=== PATIENT | female | born 1950 | race Caucasian/White ===

== ENCOUNTER → 2019-06-08 14:21 | Outpatient (CLI) | payer MEDICARE, SELFPAY ==
--- NOTE | 2019-06-08 14:33 | XR_ITS ---
PROCEDURE: XR HUMERUS LT CLINICAL INDICATION: LT ARM PAIN COMPARISON: No exams were available for comparison FINDINGS: No fracture or dislocation. No lytic or blastic change. Small area of exostosis is present at the lateral epicondyle could be related to old ligamentous injury. IMPRESSION: No acute finding. Small area of exostosis at the lateral epicondyle which could be related to old ligamentous injury or old avulsion fracture Dictated by: Ar Kate MD 06/08/2019 21:21 Signed by: <Electronically signed by Ar Kate MD in [facility]> 06/08/2019 21:21
== END ==
PROVIDERS: PCP Family Medicine; Visit Provider Family Medicine
DX: M79.602 Pain in left arm (principal)
CPT/HCPCS: 73060

== ENCOUNTER 2021-07-31 12:06 | Observation (INO) | payer MEDICARE, MEDICAID, SELFPAY ==
[2021-07-31] VITALS (12 sets, daily range): BP systolic 93–134; BP diastolic 53–66; PULSE 54–69; RESP 16–18; TEMP 36.4–37; O2SAT 97–100; BMI 25.5
--- NOTE | 2021-07-31 12:10 | PC.NURSE ---
pt has a large stage 3 ulcer on sacral area, there was some type of packing in place upon arrival. Packing was removed per ER MD. Telfa and tegaderm dressing placed over top of area.
--- NOTE | 2021-07-31 12:14 | XR_ITS ---
PROCEDURE: XR CHEST PORTABLE CLINICAL HISTORY: low bp COMPARISON: CT CT ABDOMEN PELVIS W CON from 07/31/2021 FINDINGS: There is mild cardiomegaly. Bowel interposition is noted on the right. No lobar consolidation or collapse. No acute bony abnormalities. IMPRESSION: No acute findings. Dictated by: Ar Kate MD 07/31/2021 14:25 Ar Kate MD in [facility] 07/31/2021 14:25
--- NOTE | 2021-07-31 12:16 | HMH.EDGENADL ---
ED Disposition Clinical Impression: Cellulitis Qualifiers: Site of cellulitis: face Qualified Code(s): L03.211 - Cellulitis of face Disposition: Admitted as Observation Condition on Discharge: Fair Referrals: Provider,Referral, [Primary Care Provider] - - Critical Care Critical Care Time: No Attestation: On , the high probability of a clinically significant, sudden or life threatening deterioration of the following system(s) required my full and direct attention, intervention and personal management. The time I documented below is in addition to time spent performing reported procedures but includes the following listed in this critical care notation. Medical Decision Making - Jewel Inquiry Pt receiving controlled substance: No Vital Signs: 07/31/21 12:07 07/31/21 14:23 Temperature 97.8 F Temperature Source Oral Pulse Rate 65 Pulse Rate [Left Radial] 68 Respiratory Rate 16 18 Blood Pressure 93/53 L Blood Pressure [Left Arm] 134/63 Blood Pressure Mean 67 Blood Pressure Mean [Left Arm] 86 Blood Pressure Source [Left Arm] Automatic Cuff Blood Pressure Position [Left Arm] Sitting 02 Sat by Pulse Oximetry 97 100 Oxygen Delivery Method Nasal Cannula Nasal Cannula Oxygen Flow Rate (LPM) 3 3 - Lab Data Lab Results 07/31/21 12:20: WBC 10.3, RBC 3.89 L, Hgb 11.2 L, Hct 34.3 L, MCV 88.1, MCH 28.8, MCHC 32.7, RDW 14.2, Plt Count 529 H, MPV 8.6, Neut % (Auto) 67.5, Lymph % (Auto) 25.9, [place] % (Auto) 4.7, Eos % (Auto) 1.1, Baso % (Auto) 0.9, Neut # (Auto) 6.9, Lymph # (Auto) 2.7, [place] # (Auto) 0.5, Eos # (Auto) 0.1, Baso # (Auto) 0.1 07/31/21 12:20: Sodium 137, Potassium 3.4 L, Chloride 104, Carbon Dioxide 33 H, Anion Gap 3.4 L, BUN 15, Creatinine 0.30 L, Estimated Creat Clear 62, Estimated GFR 221, Est GFR ( Amer) 267, Glucose 101 H, Calcium 7.7 L, Total Bilirubin 0.2, AST 24, ALT 15, Alkaline Phosphatase 251 H, C-Reactive Protein 72.4 H, Total Protein 5.6 L, Albumin 2.2 L, Globulin 3.4 H, Albumin/Globulin Ratio 0.6 L 07/31/21 12:20: ESR > 140 H 07/31/21 12:20: Lactate 0.7 07/31/21 12:20: Troponin I < 0.01, Procalcitonin 0.346 07/31/21 14:55: Troponin I < 0.01 Result diagrams: 07/31/21 12:20 07/31/21 12:20 Orders (Tests/Meds): ED MEDICATIONS Discontinued Medications Generic Name Dose Route Start Last Admin Trade Name Freq PRN Reason Stop Dose Admin Iopamidol 75 ml 07/31/21 14:03 07/31/21 14:04 Iopamidol-370 (76%);100ml Bottle IV 07/31/21 14:04 75 ml ONCE ONE Administration Sodium Chloride 10 ml 07/31/21 14:03 07/31/21 14:04 Sodium Chloride 0.9% 10ml Syr (Rad Only) IV 07/31/21 14:04 10 ml ONCE ONE Administration ORDERS Category Date Time Status Rapid PCR Covid and Flu A/B Stat Lab 07/31/21 16:40 Ordered Troponin I Q3H Lab 07/31/21 18:15 Ordered Urinalysis and Microscopic Stat Lab 07/31/21 12:15 Ordered Blood Culture Stat Micro 07/31/21 12:20 Received - Radiology Data #1 Image(s): Chest Image Reviewed: Yes I reviewed the patient's radiology image, Yes I have reviewed radiologist's interpretation PROCEDURE: XR CHEST PORTABLE CLINICAL HISTORY: low bp COMPARISON: CT CT ABDOMEN PELVIS W CON from 07/31/2021 FINDINGS: There is mild cardiomegaly. Bowel interposition is noted on the right. No lobar consolidation or collapse. No acute bony abnormalities. IMPRESSION: No acute findings. Dictated by: Ar Kate MD 07/31/2021 14:25 Ar Kate MD in [facility] 07/31/2021 14:25 - CT Data CT Scan: Abdomen, Pelvis, Other (Face, soft tissue neck) Time Received: 15:[address] Reviewed: Yes: I have viewed the radiologist's interpretation Findings Narrative: PROCEDURE: CT ABDOMEN PELVIS W CON CLINICAL INDICATION: dilated bowel on CXR COMPARISON: CR XR CHEST PORTABLE from 07/31/2021 TECHNIQUE: IV Contrast: 75ML Isovue 370 Oral Contrast None Axial images obtained with sagittal and coronal reformats. All CT sc
[2021-07-31 12:39] LABS: Basophils # 0.1 K/mm3 (0-0.2); Basophils % 0.9 % (0.1-2.0); Eosinophils # 0.1 K/mm3 (0.0-0.4); Eosinophils % 1.1 % (0.1-12.0); Hematocrit 34.3 % (37.0-47.0); Hemoglobin 11.2 g/dL (12.2-16.2); Lymphocytes # 2.7 K/mm3 (0.7-4.5); Lymphocytes % 25.9 % (10-50); Mean Corpuscular HGB Conc 32.7 g/dL (31.8-35.4); Mean Corpuscular Hemoglobin 28.8 pg (27.0-31.2); Mean Corpuscular Volume 88.1 fl (81-99); Mean Platelet Volume 8.6 fl (7.4-10.4); Monocytes # 0.5 K/mm3 (0.1-1.0); Monocytes % 4.7 % (1.7-9.3); Neutrophils # 6.9 K/mm3 (1.8-7.8); Neutrophils % 67.5 % (37.0-80.0); Platelet Count 529 K/mm3 (142-424); Red Blood Count 3.89 M/mm3 (4.20-5.40); Red Cell Distribution Width 14.2 % (11.5-17.5); White Blood Count 10.3 K/mm3 (4.8-10.8)
[2021-07-31 12:42] LABS: Alanine Aminotransferase 15 U/L (12-78); Albumin Level 2.2 g/dl (3.5-5.0); Albumin/Globulin Ratio 0.6 (1.1-1.8); Alkaline Phosphatase 251 U/L (38-126); Anion Gap 3.4 mEq/L (5-15); Aspartate Amino Transferase 24 U/L (14-36); Bilirubin,Total 0.2 mg/dl (0.2-1.3); Blood Urea Nitrogen 15 mg/dl (7-17); Calcium 7.7 mg/dl (8.4-10.2); Carbon Dioxide 33 mmol/L (22.0-30.0); Chloride 104 mmol/L (98-107); Estimated Glomerular Filt Rate 221 ml/min (>60); GFR (African American) 267 ML/MIN (>60); Globulin 3.4 g/dL (1.3-3.2); Glucose 101 mg/dl (74-100); Potassium 3.4 mmoL/L (3.5-5.1); Sodium 137 mmol/L (136-145); Total Protein,Serum 5.6 g/dl (6.3-8.2)
[2021-07-31 12:44] LABS: Lactic Acid 0.7 mmol/L (0.7-2.1)
[2021-07-31 12:45] LABS: Creatinine Clearance Estimated 62 mL/min (50-200)
[2021-07-31 12:47] LABS: C-Reactive Protein 72.4 mg/L (0-4)
[2021-07-31 12:58] LABS: Troponin I < 0.01 ng/ml (0.00-0.034)
[2021-07-31 13:01] LABS: Procalcitonin 0.346 ng/mL (0.0-2.0)
--- NOTE | 2021-07-31 13:06 | CT_ITS ---
PROCEDURE: CT FACIAL BONES W CON CLINICAL HISTORY: swelling, r/o abscess COMPARISON: No exams were available for comparison TECHNIQUE: Axial images obtained with sagittal and coronal reformats. All CT scans at the facility use one or more dose reduction, viz: automated exposure control, ma/kV adjustment per patient size (including targeted exams where dose is matched to indication, i.e. head), or iterative reconstruction technique. FINDINGS: Limited evaluation secondary to patient's inability to be properly position. There is diffuse subcutaneous soft tissue swelling beginning in the right parietal region of the scalp extending inferiorly in the temporal area and in the right cheek also with diffuse swelling of the external ear on the right. No obvious abscess is evident. No acute bony findings. No sinus air-fluid level. The soft tissue swelling also involves the right periorbital region. No obvious postseptal abnormalities. No radiopaque foreign bodies. IMPRESSION: Diffuse right-sided subcutaneous soft tissue swelling of the scalp extending into the right cheek and also involving the right external ear and periorbital area. No obvious drainable fluid collections. Dictated by: Ar Kate MD 07/31/2021 14:46 Ar Kate MD in [facility] 07/31/2021 14:46
--- NOTE | 2021-07-31 13:06 | CT_ITS ---
PROCEDURE: CT SOFT TISSUE NECK W CON CLINICAL HISTORY: swelling, r/o abscess COMPARISON: No exams were available for comparison TECHNIQUE: Oral Contrast: 75ml Optiray 350 IV Contrast: None Axial images obtained with sagittal and coronal reformats. All CT scans at the facility use one or more dose reduction, viz: automated exposure control, ma/kV adjustment per patient size (including targeted exams where dose is matched to indication, i.e. head), or iterative reconstruction technique. FINDINGS: Exam is extremely limited secondary to patient positioning with extensive right lateral head tilt Extensive soft tissue swelling extends from the right parietal region into the right temporal area as well as the right cheek and periorbital region. No obvious abscess or mass. No bony destructive process. There is scarring in the right lung apex. There is prominent cervical curvature convex left with the head tilted toward the right. IMPRESSION: Extensive soft tissue swelling in the right and face without obvious abscess consistent with cellulitis Dictated by: Ar Kate MD 07/31/2021 14:53 Ar Kate MD in [place] 07/31/2021 14:53
[2021-07-31 13:11] LABS: Erythrocyte Sedimentation Rate > 140 mm/hr (0-30)
--- NOTE | 2021-07-31 13:47 | CT_ITS ---
PROCEDURE: CT ABDOMEN PELVIS W CON CLINICAL INDICATION: dilated bowel on CXR COMPARISON: CR XR CHEST PORTABLE from 07/31/2021 TECHNIQUE: IV Contrast: 75ML Isovue 370 Oral Contrast None Axial images obtained with sagittal and coronal reformats. All CT scans at the facility use one or more dose reduction, viz: automated exposure control, ma/kV adjustment per patient size (including targeted exams where dose is matched to indication, i.e. head), or iterative reconstruction technique. FINDINGS: There is extensive coronary artery calcification with atelectatic changes in the lung bases and cardiomegaly. No focal liver lesion evident. The spleen, adrenal glands, and pancreas have an unremarkable appearance. No renal mass or hydronephrosis. Stomach is decompressed. Calcific density is present within the stomach at approximately 12 mm etiology indeterminate there is a moderate amount of feces in the rectosigmoid region with mild distention of the stool-filled rectosigmoid at 5.4 cm. The sigmoid colon is redundant extending into the upper abdomen with gaseous distension measuring up to 8.5 cm.. The descending colon is normal in caliber. There is gaseous distention of the transverse colon at 6 cm. No evidence of diverticulitis. No evidence of appendicitis. There is some fecal a appearing material within the distal ileum suggesting stasis. Stool is present within the ascending colon. The cecum does not appear distended. There is no free air apparent. There is diffuse subcutaneous edema. Aburto catheter is present with decompressed urinary bladder. There is stranding of the perirectal fat and presacral fat which is nonspecific. No evidence of aortic aneurysm. Bipolar prosthesis is present in the right hip. There is diffuse osteopenia. Mild concave deformity is present at the superior and inferior endplate of L4 and L3 nonspecific. There is mild wedging of T8 age indeterminate. IMPRESSION: Gaseous and stool filled large bowel some of which is dilated expected Ali at the sigmoid region and transverse colon with a moderate amount stool within the rectosigmoid region. 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 This does not appear to represent a sigmoid volvulus. There is moderate stranding of the fat in the perirectal region and presacral area. This is nonspecific and could be inflammatory in nature or secondary to hypovolemia. There is diffuse stranding of the subcutaneous fat in the abdomen and pelvis consistent with anasarca. Dictated by: Ar Kate MD 07/31/2021 15:05 Ar Kate MD in [place] 07/31/2021 15:05
--- NOTE | 2021-07-31 14:24 | PC.NURSE ---
pt turned onto R side at this time, pillow under R side of head, heels floated with pillow will continue to monitor
--- NOTE | 2021-07-31 14:32 | ECG_ITS ---
APPROVED REPORT Exam: Resting ECG HR:61 bpm ECG Measurements Heart Rate [address] 234 P 11 QRSd 96 QRS 7 QT 438 T 55 QTc 440 Conclusion Sinus rhythm with 1st degree AV block Inferior infarct, age undetermined Abnormal ECG Electronically signed by : Mickey Armendariz MD 08/01/2021 17:49:08
[2021-07-31 15:22] LABS: Troponin I < 0.01 ng/ml (0.00-0.034)
--- NOTE | 2021-07-31 16:37 | PC.NURSE ---
Dr Casey speaking with Dr Armendariz
--- NOTE | 2021-07-31 16:45 | PC.NURSE ---
Covid swab sent to lab
[2021-07-31 16:50] LABS: Coronavirus 19, PCR Not Detected (NotDetected); Influenza A, PCR Not Detected (NotDetected); Influenza B, PCR Not Detected (NotDetected)
--- NOTE | 2021-07-31 17:29 | PC.NURSE ---
pt turned onto L side at this time, pt states no needs at this time.
--- NOTE | 2021-07-31 18:23 | PC.NURSE ---
report called to vinayak lópez on second floor at this time
[2021-07-31 18:41] LABS: Microscopic, Urine URINE MICROSCOPIC (MICROSCOPIC)
[2021-07-31 18:55] LABS: Appearance,Urine SL CLOUDY (Clear); Bilirubin,Urine Negative (Negative); Blood, Urine TRACE-I (Negative); Color,Urine YELLOW (Yellow); Glucose,Urine (UA) Negative (Negative); Ketones,Urine Negative (Negative); Leukocyte Esterase,Urine 2+ (Negative); Nitrate,Urine POSITIVE (Negative); Protein,Urine Negative (Negative); Specific Gravity, Urine <= 1.005 (1.005-1.030)
[2021-07-31 19:06] LABS: Bacteria,Urine 1+ /lpf; RBC,Urine Occasional #/hpf (0-3); Squamous Epithelial Cell,Urine Occasional #/hpf (0-5)
[2021-08-01] VITALS: BP 137/55; PULSE 60; RESP 16; TEMP 36.4; O2SAT 96
[2021-08-01 02:51] VITALS: O2SAT 98
[2021-08-01 04:00] VITALS: BP 124/70; PULSE 65; RESP 16; TEMP 36.4; O2SAT 95
--- NOTE | 2021-08-01 06:51 | PC.NURSE ---
No acute changes. Pt is alert to self and responds to staff. She is currently on 3L NC. Is on this at [facility] faacility. Pt is severly contracted in hands and to (R) side. Skin to BLE is scaly with drainage. Decubitus ulcer noted to cocccyx Stage 2. DSG applied. Pt given bed bath. VSS. Will continue to monitor.
--- NOTE | 2021-08-01 07:49 | HMH.PHAVTE ---
[facility] Pharmacy VTE Monitoring - Patient Demographics Admission date: 07/31/21 Report Date: 08/01/21 Time: 07:49 Allergies/Adverse Reactions: Patient Allergies No Known Allergies Allergy (Unverified 09/03/19 15:18) Height: 1.7 m Weight: 73.936 kg Patient Problems: Current Active Problems Cellulitis (Acute) - VTE Risk Labs: VTE Related Lab Results Hgb 11.2 g/dL (12.2-16.2) L 07/31/21 12:20 Hct 34.3 % (37.0-47.0) L 07/31/21 12:20 Plt Count 529 K/mm3 (142-424) H 07/31/21 12:20 BUN 15 mg/dl (7-17) 07/31/21 12:20 Creatinine 0.30 mg/dl (0.52-1.04) L 07/31/21 12:20 Estimated Creat Clear 62 mL/min (50-200) 07/31/21 12:20 VTE Risk Level: Moderate Risk Clinical Trial Participant: No - Prophylaxis VTE Prophylaxis Ordered?: Yes Types of VTE Prophylaxis: TEDS Knee High
--- NOTE | 2021-08-01 07:50 | HMH.PHACONS ---
- Pharmacy Consult Date: 08/01/21 Time: 07:50 Referring provider: SIDDHARTHA Reason for Consult:: MANAGEMENT OF VANCOMYCIN THERAPY Allergies and ADEs:: Allergies Allergy/AdvReac Type Severity Reaction Status Date / Time No Known Allergies Allergy Unverified 09/03/19 15:18 Home Medications:: Home Medications Medication Instructions Recorded Confirmed Type aspirin 81 mg tablet,delayed 81 mg PO DAILY 09/03/19 08/01/21 History release atorvastatin 10 mg tablet 10 mg PO DAILY 09/03/19 08/01/21 History carvedilol 3.125 mg tablet 3.125 mg PO BID 09/03/19 08/01/21 History cefuroxime axetil 500 mg tablet 500 mg PO BID 09/03/19 07/31/21 History diazepam 5 mg tablet 2.5 mg PO QID tab 09/03/19 08/01/21 History furosemide 20 mg tablet 20 mg PO DAILY 09/03/19 08/01/21 History levothyroxine 175 mcg capsule 200 mcg PO DAILY 09/03/19 08/01/21 History pantoprazole 40 mg granules 20 mg PO DAILY 09/03/19 07/31/21 History delayed-release for susp in packet sennosides 8.8 mg/5 mL oral syrup 5 ml PO QHS 09/03/19 07/31/21 History Mirtazapine 7.5 mg PO HS 07/31/21 08/01/21 History Potassium Chloride 20 meq PO DAILY 07/31/21 08/01/21 History Acetaminophen [Tylenol 500mg 500 mg PO Q8 PRN 08/01/21 08/01/21 History tablet] Ascorbic Acid 500 mg PO DAILY 08/01/21 08/01/21 History Lactobacillus Acidophilus 1 each PO DAILY 08/01/21 08/01/21 History [Probiotic] Oxybutynin Chloride [Ditropan Xl] 5 mg PO DAILY 08/01/21 08/01/21 History Height: 1.7 m Weight: 73.936 kg Laboratory Results:: Laboratory Results - last 24 hr 07/31/21 12:20: WBC 10.3, RBC 3.89 L, Hgb 11.2 L, Hct 34.3 L, MCV 88.1, MCH 28.8, MCHC 32.7, RDW 14.2, Plt Count 529 H, MPV 8.6, Neut % (Auto) 67.5, Lymph % (Auto) 25.9, [place] % (Auto) 4.7, Eos % (Auto) 1.1, Baso % (Auto) 0.9, Neut # (Auto) 6.9, Lymph # (Auto) 2.7, [place] # (Auto) 0.5, Eos # (Auto) 0.1, Baso # (Auto) 0.1 07/31/21 12:20: Sodium 137, Potassium 3.4 L, Chloride 104, Carbon Dioxide 33 H, Anion Gap 3.4 L, BUN 15, Creatinine 0.30 L, Estimated Creat Clear 62, Estimated GFR 221, Est GFR ( Amer) 267, Glucose 101 H, Calcium 7.7 L, Total Bilirubin 0.2, AST 24, ALT 15, Alkaline Phosphatase 251 H, C-Reactive Protein 72.4 H, Total Protein 5.6 L, Albumin 2.2 L, Globulin 3.4 H, Albumin/Globulin Ratio 0.6 L 07/31/21 12:20: ESR > 140 H 07/31/21 12:20: Lactate 0.7 07/31/21 12:20: Troponin I < 0.01, Procalcitonin 0.346 07/31/21 14:55: Troponin I < 0.01 07/31/21 16:43: SARS-CoV-2 (PCR) Not detected, Influenza A Untype (PCR) Not detected, Influenza Type B (PCR) Not detected 07/31/21 18:38: Urine Color Yellow, Urine Appearance Sl cloudy, Urine pH 6.0, Ur Specific [place] <= 1.005, Urine Protein Negative, Urine Glucose (UA) Negative, Urine Ketones Negative, Urine Blood Trace-i, Urine Nitrate Positive, Urine Bilirubin Negative, Urine Urobilinogen 1.0, Ur Leukocyte Esterase 2+ A, Urine RBC Occasional, Urine WBC 3-5, Ur Squamous Epith Cells Occasional, Urine Bacteria 1+ Medical History: Reports:: Anxiety, Congestive Heart Failure, Hyperlipidemia, Hypertension, Urinary Tract Infection Assessment and Plan - Assessment and plan all Dx Assessment and Plan for all problems:: Pt admitted with facial cellulitis. Received vancomycin 1000mg (~14mg/kg) in ER. Will continue vancomycin 1000mg IV every 12 hours starting this am. Pharmacy will follow daily and adjust as necessary.
[2021-08-01 08:00] VITALS: BP 131/34; PULSE 70; RESP 16; TEMP 36.3; O2SAT 95
--- NOTE | 2021-08-01 08:12 | HMH.PHAINT ---
MEDICATION RECONCILIATION COMPLETE USING SHELTER MAR AND SURESCRIPTS INFO
--- NOTE | 2021-08-01 08:15 | HMH.HPDC ---
General - General Admission date:: 07/31/21 Discharge date: 08/01/21 *Admission Date: 07/31/21 *Chief complaint: Facial swelling and low-grade fever *History of present illness: Presented to the emergency department by ambulance from [facility] with chief complaint of facial swelling and low blood pressure. Apparently has been on cefuroxime for a urinary tract infection but this swelling was noticed over the past couple of days in the right side of the face. She was also noted to have a mildly low blood pressure and was brought to the emergency department. In the ER her significant torticollis and face and neck contracture limited a good exam but was noted to have swelling without evidence of abscess formation. CT scan confirmed the diagnosis of right facial cellulitis involving the scalp, right maxillary area and surrounding the ear but did not show any kind of abscess or fluid collections or evidence of subcutaneous emphysema. She was admitted to hospital for IV steroids and antibiotics. White count was normal. [facility] History I have reviewed the patient's past medical history: Yes Medical History: Reports:: Anxiety, Congestive Heart Failure, Hyperlipidemia, Hypertension, Urinary Tract Infection *Have you ever received a pneumonia vaccine?: No *Have you received a flu vaccine this season?: No Other Medical History: Reports: Hypothyroidism, Thyroid Disease, Other (parkinson,mi,) Laterality Cases: Right: Total Hip Replacement Fractures: Yes - *Social History Smoking Status: Never smoker Alcohol Intake: never *Occupational Status:: retired Housing: house Household Members: family *Travel in the last 8 weeks: None - Psychiatric History Pschychiatric History:: Reports:: Anxiety Family Hx:: Unable to obtain Review of Systems - Review of Systems Review of systems:: unable to obtain Exam Vital signs and Labs for Last 24 Hours: Temp Pulse Resp BP Pulse Ox 97.5 F L 65 16 124/70 95 08/01/21 04:00 08/01/21 04:00 08/01/21 04:00 08/01/21 04:00 08/01/21 04:00 Laboratory Results - last 24 hr 07/31/21 12:20: WBC 10.3, RBC 3.89 L, Hgb 11.2 L, Hct 34.3 L, MCV 88.1, MCH 28.8, MCHC 32.7, RDW 14.2, Plt Count 529 H, MPV 8.6, Neut % (Auto) 67.5, Lymph % (Auto) 25.9, Sac % (Auto) 4.7, Eos % (Auto) 1.1, Baso % (Auto) 0.9, Neut # (Auto) 6.9, Lymph # (Auto) 2.7, Sac # (Auto) 0.5, Eos # (Auto) 0.1, Baso # (Auto) 0.1 07/31/21 12:20: Sodium 137, Potassium 3.4 L, Chloride 104, Carbon Dioxide 33 H, Anion Gap 3.4 L, BUN 15, Creatinine 0.30 L, Estimated Creat Clear 62, Estimated GFR 221, Est GFR ( Amer) 267, Glucose 101 H, Calcium 7.7 L, Total Bilirubin 0.2, AST 24, ALT 15, Alkaline Phosphatase 251 H, C-Reactive Protein 72.4 H, Total Protein 5.6 L, Albumin 2.2 L, Globulin 3.4 H, Albumin/Globulin Ratio 0.6 L 07/31/21 12:20: ESR > 140 H 07/31/21 12:20: Lactate 0.7 07/31/21 12:20: Troponin I < 0.01, Procalcitonin 0.346 07/31/21 14:55: Troponin I < 0.01 07/31/21 16:43: SARS-CoV-2 (PCR) Not detected, Influenza A Untype (PCR) Not detected, Influenza Type B (PCR) Not detected 07/31/21 18:38: Urine Color Yellow, Urine Appearance Sl cloudy, Urine pH 6.0, Ur Specific [place] <= 1.005, Urine Protein Negative, Urine Glucose (UA) Negative, Urine Ketones Negative, Urine Blood Trace-i, Urine Nitrate Positive, Urine Bilirubin Negative, Urine Urobilinogen 1.0, Ur Leukocyte Esterase 2+ A, Urine RBC Occasional, Urine WBC 3-5, Ur Squamous Epith Cells Occasional, Urine Bacteria 1+ I & O for Last 24 hours: Intake & Output 07/29/21 07/30/21 07/31/21 08/01/21 11:59 11:59 11:59 11:59 Intake Total 789 / 789 Output Total 1175 / 1175 Balance -386 / -386 Weight 163 lb - Constitutional no acute distress, thin, cachectic, chronically ill appearing Comments: Contracture of right neck, contractures of distal skeletal muscles. - *Routine HEENT Exam Head: Present: other (Right-sided maxillary and ear and cheek swelli
--- NOTE | 2021-08-01 09:14 | SW/DCPLANNER ---
Addendum entered by Angela Vega 08/01/21 09:23: CORRECTION: patient is [facility] level of care per Enedelia. Original Note: This patient reside at [facility]: per Enedelia patient is SNF level of care. I have informed Enedelia that this patient will discharge back today. Enedelia has stated that this patient does NOT need an additional COVID swab. Patient will discharge back today.
== END 2021-08-01 15:14 ==
LOC: ER 16:43 → 2ND 17:10
PROVIDERS: Admitting Provider Internal Medicine Adolescent Medicine; Emergency Provider Emergency Medicine; Visit Provider Internal Medicine Adolescent Medicine
DX: L03.211 Cellulitis of face (principal); I11.0 Hypertensive heart disease with heart failure; I50.9 Heart failure, unspecified; E78.5 Hyperlipidemia, unspecified; E03.9 Hypothyroidism, unspecified; G20 Parkinson's disease; Z79.899 Other long term (current) drug therapy; Z20.822 Contact with and (suspected) exposure to COVID-19
CPT/HCPCS: G0378; 36415; 70487; 70491; 71045; 74177; 80053; 81001; 83605; 84145; 84484; 85025; 85651; 86140; 87040; 87086; 87088; 87186; 93005; 94760; 94761; 96365; 99285; C9803; J3370; Q9967; U0003; U0005

== ENCOUNTER 2022-08-06 15:46 | Inpatient (IN) | payer MEDICARE, MEDICAID, SELFPAY ==
[2022-08-06] VITALS (17 sets, daily range): BP systolic 67–109; BP diastolic 33–57; PULSE 79–93; RESP 14–20; TEMP 36.7–37; O2SAT 94–98; BMI 23.6; BMI 23.7
--- NOTE | 2022-08-06 15:45 | HMH.EDGENADL ---
Discharge Plan Disposition Patient Disposition: Admitted As Inpatient Condition: Fair Clinical Impressions Clinical Impression: Cellulitis, Acute hypokalemia Discharge ED Provider: Sam Antoine General Adult HPI General Chief complaint: Skin/Abscess/Foreign Body Stated complaint: weakness Time Seen by Provider: 08/06/22 15:45 Mode of Arrival: EMS History of Present Illness HPI narrative: 72-year-old female with history of hypertension, hypothyroidism, coronary artery disease, Parkinson's disease, currently bedbound with significant contractures. She was in a nursing facility and was sent over for swelling and erythema of the left abdomen and flank area. There is no reported fevers, vomiting, she states there is no real pain in the area, does report some mild nausea and decreased appetite. Denies any abdominal pain, chest pain shortness of breath or other symptoms at this time, they have not had her on any treatments prior to this visit. Related Data Home Medications Medication Instructions Recorded Confirmed aspirin 81 mg tablet,delayed 81 mg PO DAILY heart health 09/03/19 08/06/22 release (Adult Low Dose Aspirin) atorvastatin 10 mg tablet 10 mg PO HS Cholesterol 09/03/19 08/06/22 diazepam 5 mg tablet (Valium) 2.5 mg PO BID TREMORS 09/03/19 08/06/22 sennosides 8.8 mg/5 mL oral syrup 5 ml PO QHS stool softner 09/03/19 08/06/22 (senna) potassium chloride 10 mEq 20 meq PO DAILY Supplement 07/31/21 08/06/22 tablet,extended release ascorbic acid (vitamin C) 500 mg 500 mg PO DAILY wound 08/01/21 08/06/22 tablet levothyroxine 200 mcg tablet 200 mcg PO DAILY HYPOTHYROIDISM 08/01/21 08/06/22 oxybutynin chloride 5 mg 5 mg PO DAILY urinary retention 08/01/21 08/06/22 tablet,extended release 24 hr pantoprazole 20 mg tablet,delayed 20 mg PO DAILY GERD 08/01/21 08/06/22 release Lactobacillus acidophilus 1 cap PO DAILY Supplement 08/06/22 08/06/22 (Acidophilus capsule) carvedilol 3.125 mg tablet 3.125 mg PO BID Hypertension 08/06/22 08/06/22 furosemide 40 mg tablet 40 mg PO DAILY Fluid 08/06/22 08/06/22 ibuprofen 125 mg-acetaminophen 250 1 tab PO HS Pain 08/06/22 08/06/22 mg tablet (Advil Dual Action) levothyroxine 50 mcg tablet 50 mcg PO DAILY hypothyroidism 08/06/22 08/06/22 (Synthroid) mirtazapine 15 mg tablet (Remeron) 7.5 mg PO HS appetite stimulant 08/06/22 08/06/22 sennosides 8.6 mg tablet (senna) 8.6 mg PO HS loose stool 08/06/22 08/06/22 Allergies Allergy/AdvReac Type Severity Reaction Status Date / Time Penicillins Allergy Verified 08/06/22 18:37 Sulfa (Sulfonamide Allergy Verified 08/06/22 18:37 Antibiotics) sulfamethoxazole Allergy Verified 08/06/22 18:37 [From ] trimethoprim [From ] Allergy Verified 08/06/22 18:37 [facility] Medical History Hip fracture requiring operative repair Hypertension Hypothyroid Non-ST elevated myocardial infarction Parkinson disease Unsteady gait UTI (urinary tract infection) Social History Smoking Status: Never smoker alcohol intake: never current occupational status: retired Travel in the last 8 weeks: None household members: family housing: house ROS Obtained: Yes Systems reviewed as appropriate & no additional complaints except as documented Constitutional Constitutional: Reports system reviewed and no additional complaints, except as documented Eyes Eyes: Reports system reviewed and no additional complaints, except as documented ENT Ears, Nose, Mouth, and Throat: Reports system reviewed and no additional complaints, except as documented Cardiovascular Cardiovascular: Reports system reviewed and no additional complaints, except as documented Respiratory Respiratory: Reports system reviewed and no additional complaints, except as documented Gastrointestinal Gastrointestingal: Reports system reviewed and
[2022-08-06 16:54] LABS: Basophils # 0.1 K/mm3 (0-0.2); Basophils % 0.4 % (0.1-2.0); Eosinophils # 0.4 K/mm3 (0.0-0.4); Hematocrit 36.8 % (37.0-47.0); Hemoglobin 12.3 g/dL (12.2-16.2); Lymphocytes # 1.4 K/mm3 (0.7-4.5); Lymphocytes % 4.2 % (10-50); Mean Corpuscular HGB Conc 33.4 g/dL (31.8-35.4); Mean Corpuscular Hemoglobin 29.4 pg (27.0-31.2); Mean Platelet Volume 8.3 fl (7.4-10.4); Monocytes # 0.5 K/mm3 (0.1-1.0); Monocytes % 1.5 % (1.7-9.3); Neutrophils # 30.6 K/mm3 (1.8-7.8); Neutrophils % 92.8 % (37.0-80.0); Platelet Count 262 K/mm3 (142-424); Red Blood Count 4.18 M/mm3 (4.20-5.40); Red Cell Distribution Width 14.4 % (11.5-17.5); White Blood Count 32.9 K/mm3 (4.8-10.8)
[2022-08-06 16:57] LABS: MANUAL DIFFERENTIAL MANUAL DIFFERENTIAL (MANUAL DIFF)
[2022-08-06 17:00] LABS: Alanine Aminotransferase 94 U/L (12-78); Albumin Level 2.7 g/dl (3.5-5.0); Albumin/Globulin Ratio 0.9 (1.1-1.8); Alkaline Phosphatase 224 U/L (38-126); Anion Gap 8.1 mEq/L (5-15); Aspartate Amino Transferase 138 U/L (14-36); Bilirubin,Total 0.4 mg/dl (0.2-1.3); Blood Urea Nitrogen 23 mg/dl (7-17); Calcium 7.9 mg/dl (8.4-10.2); Carbon Dioxide 31 mmol/L (22.0-30.0); Chloride 98 mmol/L (98-107); Creatinine Clearance Estimated 57 mL/min (50-200); Estimated Glomerular Filt Rate 158 ml/min (>60); GFR (African American) 191 ML/MIN (>60); Globulin 3.1 g/dL (1.3-3.2); Glucose 129 mg/dl (74-100); Potassium 3.1 mmoL/L (3.5-5.1); Sodium 134 mmol/L (136-145); Total Protein,Serum 5.8 g/dl (6.3-8.2)
[2022-08-06 17:01] LABS: Microscopic, Urine URINE MICROSCOPIC (MICROSCOPIC)
[2022-08-06 17:02] LABS: Appearance,Urine CLOUDY (Clear); Bilirubin,Urine Negative (Negative); Blood, Urine Negative (Negative); Color,Urine YELLOW (Yellow); Glucose,Urine (UA) Negative (Negative); Ketones,Urine Negative (Negative); Leukocyte Esterase,Urine 3+ (Negative); Nitrate,Urine Negative (Negative); PH,Urine 8.5 (5.0-8.5); Protein,Urine TRACE (Negative); Specific Gravity, Urine <= 1.005 (1.005-1.030); Urobilinogen,Urine 0.2 EU/dl (0.2)
--- NOTE | 2022-08-06 17:03 | CT_ITS ---
PROCEDURE INFORMATION: Exam: CT Chest Without Contrast; Diagnostic Exam date and time: 08/06/2022 5:09 PM Age: 72 years old Clinical indication: Other: Cellulitis; Additional info: Chest and abdominal wall cellulitis TECHNIQUE: Imaging protocol: Diagnostic computed tomography of the chest without contrast. Radiation optimization: All CT scans at this facility use at least one of these dose optimization techniques: automated exposure control; mA and/or kV adjustment per patient size (includes targeted exams where dose is matched to clinical indication); or iterative reconstruction. COMPARISON: CR XR CHEST PORTABLE 07/31/2021 12:32 PM FINDINGS: Lungs: There is chronic patchy subsegmental atelectasis or scarring in the posterior lower lungs. There is a slightly mosaic attenuation pattern in the lungs, which can be due to underlying small airways disease, versus mild patchy ground-glass edema or pneumonia. No focal consolidation. Peripheral calcified right pulmonary granulomas. No suspicious nodules. Pleural spaces: Trace left pleural effusion. No pneumothorax. Heart: Cardiomegaly. Multiple coronary artery calcifications are present. Trace pericardial effusion. Lymph nodes: Some small calcified mediastinal and right hilar lymph nodes.No significantly enlarged lymph nodes by short axis criteria. Vasculature: No thoracic aortic aneurysm. Multiple calcified plaques. Dilated main pulmonary artery 4.2 cm, raising the possibility of pulmonary hypertension. Bones/joints: Osteopenia. Chronic moderate T6 and T8 vertebral body fracture deformities with thoracic kyphosis. No acute appearing fracture or high-grade listhesis, as visualized. Arthritis at the glenohumeral joints. Soft tissues: Soft tissue edema in the chest wall greatest posteriorly on the left, consistent with the history of cellulitis or this may be in part fluid retention, as this was present on the prior CT though slightly increased in the interval. No loculated fluid collection. No mass. No soft tissue emphysema. IMPRESSION: 1. Mild chest wall soft tissue edema greatest posteriorly, minimally increased compared with 2020, which could be a combination of cellulitis and fluid retention. No loculated fluid collection. No soft tissue emphysema. 2. Patchy subsegmental atelectasis in the posterior lower lungs. Slightly mosaic attenuation pattern in the lungs could be due to underlying small airways disease, versus mild patchy ground-glass edema or pneumonia. 3. Dilated main pulmonary artery, raising the possibility of pulmonary hypertension. 4. Cardiomegaly. Coronary artery disease. 5. Trace left pleural effusion. 6. Chronic granulomatous changes. 7. Additional nonemergency and chronic findings as above.
--- NOTE | 2022-08-06 17:03 | CT_ITS ---
PROCEDURE INFORMATION: Exam: CT Abdomen And Pelvis Without Contrast Exam date and time: 08/06/2022 5:09 PM Age: 72 years old Clinical indication: Other: Cellulitis; Prior surgery; Additional info: Chest and abdominal wall cellulitis TECHNIQUE: Imaging protocol: Computed tomography of the abdomen and pelvis without contrast. Radiation optimization: All CT scans at this facility use at least one of these dose optimization techniques: automated exposure control; mA and/or kV adjustment per patient size (includes targeted exams where dose is matched to clinical indication); or iterative reconstruction. COMPARISON: CT ABDOMEN PELVIS W CON 07/31/2021 1:57 PM FINDINGS: Liver: The liver is normal size. Calcified granulomas. Gallbladder and bile ducts: Cholelithiasis, multiple tiny calcified stones pooling dependently, series 4, images 36 -39. No biliary dilatation. Pancreas: Fatty atrophic changes in the pancreas. No ductal dilatation. Spleen: Mild splenomegaly 14 cm long axis, with calcified granulomas. Adrenal glands: The adrenal glands are normal. Kidneys and ureters: Multiple nonobstructing tiny right upper pole renal calculi series 4, image 46. No hydronephrosis, hydroureter, or obstructing calcified stones are seen on the right or left; visualization partially limited in the pelvis due to metallic streak artifacts. Stomach and bowel: There is persistent or recurrent severe gaseous distention of the colon, similar to 07/31/2021, although dilatation of the rectum and lower sigmoid has increased, and there is a larger amount of fecal material retained in the rectum compared with the prior exam, and there may be rectal fecal impaction. Rectosigmoid is dilated to 11.2 cm diameter on sagittal series 6, image 59. No mucosal thickening or pneumatosis intestinalis is seen. There are scattered colonic air-fluid levels with liquid stool in the proximal colon there is increased fluid distention of small bowel loops with air-fluid levels compared with the prior study, but no significant small intestinal dilatation. No acute findings in the stomach, stomach is not dilated. Appendix: No findings of appendicitis. Intraperitoneal space: There is no significant free intraperitoneal fluid. There is no free intraperitoneal air. Vasculature: There is no aortic aneurysm.. The vasculature demonstrates scattered mild atherosclerotic calcification. No portal venous gas. Lymph nodes: Unremarkable. No enlarged lymph nodes. Urinary bladder: The urinary bladder is contracted around Aburto catheter and not well evaluated. Reproductive: Post hysterectomy. No acute findings as visualized. Bones/joints: Osteopenia/osteoporosis. Multiple chronic appearing vertebral endplate depressions, and a chronic moderate approximate T8 vertebral body compression fracture deformity. No acute appearing fracture or high-grade listhesis, as visualized. There is a total right hip prosthesis which appears grossly intact and normally aligned, with associated metallic artifacts. Soft tissues: There is chronic subcutaneous soft tissue edema in the abdomen-pelvis wall and extending into the lower extremities, when compared with the previous study, but this appears worsened, consistent with the history of cellulitis, this is also likely in part due to fluid retention. No loculated fluid collection. No soft tissue emphysema. Other findings: For chest findings, please see the chest CT report. IMPRESSION: 1. Worsened abdominal-pelvic wall and lower extremity soft tissue edema compared with 07/31/2021, which could be due to a combination of cellulitis and fluid retention. No loculated abscess collection
[2022-08-06 17:07] LABS: Eosinophils % 1 % (0-3); Lymphocytes % 8 % (10-50); Monocytes % 3 % (2-9); Neutrophils % 88 % (42-76); Total Cells Counted 100
[2022-08-06 17:09] LABS: Platelet Estimate Normal; RBC Morphology Normal
--- NOTE | 2022-08-06 17:12 | PC.NURSE ---
pt to ct at this time
[2022-08-06 17:17] LABS: Procalcitonin 24.6 ng/mL (0.0-2.0)
--- NOTE | 2022-08-06 17:17 | PC.NURSE ---
notified abx had been started prior to blood culture orders placed. states he still wants blood cultures drawn.
[2022-08-06 17:30] LABS: C-Reactive Protein 57.5 mg/L (0-4)
[2022-08-06 17:33] LABS: Amorphous Sediment,Urine 4+ /lpf; Bacteria,Urine 3+ /lpf; RBC,Urine Occasional #/hpf (0-3); Squamous Epithelial Cell,Urine Occasional #/hpf (0-5); Transitional Epi Cells,Urine OCC #/lpf (0-3)
[2022-08-06 17:34] LABS: Triple Phosphate Crystal,Urine 2+ /lpf
[2022-08-06 17:40] LABS: Erythrocyte Sedimentation Rate 75 mm/hr (0-30)
--- NOTE | 2022-08-06 17:54 | PC.NURSE ---
pt noted to be warm to the touch. temp rechecked. temp 99.1. notified
[2022-08-06 18:04] LABS: Lactic Acid 1.1 mmol/L (0.7-2.1)
--- NOTE | 2022-08-06 18:26 | PC.NURSE ---
potassium infusing with no complications
--- NOTE | 2022-08-06 18:30 | PC.NURSE ---
MD aware of pt's hypotension. pt reassessed, no change in condition.
[2022-08-06 18:38] LABS: Coronavirus 19, PCR Not Detected (NotDetected); Influenza A, PCR Not Detected (NotDetected); Influenza B, PCR Not Detected (NotDetected)
--- NOTE | 2022-08-06 19:05 | PC.NURSE ---
material handling warehouse supervisor notified of admission
--- NOTE | 2022-08-06 19:19 | PC.NURSE ---
report given to mine shifter staff
--- NOTE | 2022-08-06 19:37 | PC.NURSE ---
Hospitalist at bedside
--- NOTE | 2022-08-06 20:34 | PC.NURSE ---
Checked on pt at this time. NS infusing. No needs stated
--- NOTE | 2022-08-06 20:48 | PC.NURSE ---
PT ARRIVED TO FLOOR AT THIS TIME
--- NOTE | 2022-08-06 20:53 | EXP.HP ---
History of Present Illness *Admission Date: 08/06/22 *Reason for visit:: left flank redness *History of present illness: This is a chronic comorbid 72-year-old female with history of Parkinson's disease, hypertension, hypothyroidism, chronic indwelling Aburto catheter who presents from her [facility] for left abdomen and flank swelling and redness. Patient has a chronic medical history with severe contractures and is bedbound. Staff at the SNF noted erythema of the left abdomen and flank today and sent her to the emergency department. Patient is neurologically intact and denies any significant pain but does report soreness of her skin. She denies any abdominal pain, diarrhea, nausea. She denies fever or any other constitutional symptoms. She does have a chronic indwelling Aburto catheter but denies any changes with this. Emergency department work-up significant for leukocytosis with a white blood cell count of 32, other labs notable for hypokalemia with a potassium of 3.1, normal renal function, elevated ESR and CRP, mildly elevated AST and ALT. She is also noted to have 3+ leukoesterase bacteria and white blood cells in her urine. CT chest abdomen pelvis was obtained to rule out necrotizing fasciitis. CT shows soft tissue swelling but no gaseous abnormalities or localized fluid collections. Due to the above-mentioned findings, she will be admitted to hospitalist service for further evaluation and management. On admission she blood cultures were obtained and she was covered with broad-spectrum antibiotics, namely Vanco and cefepime. Of note on admission she did have a downtrending in her blood pressure to systolic in the 80s. Urine concentrated and did have positive response from a liter bolus to systolic blood pressure in the 90s. I feel at this point she is stable for MedSurg. [facility] Medical History (Updated 08/07/22 @ 10:00 by Anthony Perkins MD) Cannot walk Hip fracture requiring operative repair Hypertension Hypothyroid Non-ST elevated myocardial infarction Parkinson disease Unsteady gait UTI (urinary tract infection) Social History (Updated 08/06/22 @ 23:29 by Elisha Nobles RN) Smoking Status: Never smoker alcohol intake: never current occupational status: retired Travel in the last 8 weeks: None household members: family housing: house Review of Systems Constitutional Constitutional: Reports as per HPI Eyes Eyes: Reports system reviewed and no additional complaints, except as documented ENT Ears, Nose, Mouth, and Throat: Reports dry mouth *Cardiovascular Cardiovascular: Denies chest pain and Denies irregular heart rhythm *Respiratory Respiratory: Reports system reviewed and no additional complaints, except as documented *Gastrointestinal Gastrointestinal: Reports constipation *Genitourinary Genitourinary: Reports system reviewed and no additional complaints, except as documented *Musculoskeletal Musculoskeletal: Reports atrophy, Reports limited range of motion and Reports stiffness Integumentary/Breasts Skin/Breast: Reports erythema Comments: left flank and abdomen tender to touch *Neurologic Neurologic: Reports system reviewed and no additional complaints, except as documented Psychiatric Psychiatric: Reports system reviewed and no additional complaints, except as documented Endocrine Endocrine: Reports system reviewed and no additional complaints, except as documented Hematologic/Lymphatic Hematologic/Lymphatic: Reports system reviewed and no additional complaints, except as documented Meds Home Medications and Allergies Home Medications Medication Instructions Recorded Confirmed Type aspirin 81 mg tablet,delayed 81 mg PO DAILY heart health 09/03/19 08/06/22 History release (Adult Low Dose Aspirin) atorvastatin 10 mg tablet 10 mg PO HS Cholesterol 09/03/19 08/06/22 History diazepam 5 mg tablet (Valium) 2.5 mg PO BID Tremors 09/03/19 08/06/22 History potassium chloride 10 mEq 20 meq PO CELSO
--- NOTE | 2022-08-06 21:20 | PC.NURSE ---
Notified hospitalist pt manual bp 67/35. Orders for 1 L NS bolus over 1 hour r/v and carried out.
--- NOTE | 2022-08-06 21:57 | PC.NURSE ---
Verified DNR status over phone with pt POA/son Kiko Alston. MPartin witness. DNR placed on chart and DNR bracelet placed on pt.
[2022-08-07] VITALS (28 sets, daily range): BP systolic 71–137; BP diastolic 29–54; PULSE 80–126; RESP 18–24; TEMP 36.7–38.7; O2SAT 91–98; BMI 23.7
--- NOTE | 2022-08-07 00:18 | PC.NURSE ---
Notified hospitalist pt bp 75/36. New orders for 1 L NS bolus r/v and carried out.
--- NOTE | 2022-08-07 02:00 | PC.NURSE ---
Notified hospitalist pt bp 71/37. Orders to transfer to step down and start on levophed drip r/v and carried out.
--- NOTE | 2022-08-07 02:13 | PC.NURSE ---
Pt transferred to stepdown at this time. Report given to Blanche Aguirre RN to assume pt care.
--- NOTE | 2022-08-07 02:16 | EXP.SEPSIS.E ---
Sepsis Event Note Evaluation Current stage of sepsis: septic shock Focused Exam Vital Signs Temp Pulse Pulse Resp BP BP Pulse Ox 08/06/22 23:35 98.6 F 08/06/22 21:20 83 20 67/35 L 97 08/06/22 20:51 98.0 F 81 16 93/51 L 08/06/22 19:00 82 20 86/53 L 97 08/06/22 18:30 86 15 82/48 L 97 08/06/22 18:29 85 18 85/49 L 98 08/06/22 18:28 85 19 83/47 L 97 08/06/22 17:54 79 15 91/49 L 95 08/06/22 17:30 89 16 93/57 L 94 L 08/06/22 17:04 91 H 14 101/57 L 94 L 08/06/22 16:30 93 H 18 101/57 L 94 L 08/06/22 15:50 98.3 F 91 H 18 109/57 L 97 Problem List (1) Cellulitis: Status: Acute (2) Acute cystitis: Status: Acute (3) Acute hypokalemia: Status: Acute (4) Constipation by delayed colonic transit: Status: Acute (5) Hypertension: Status: Chronic (6) Hypothyroid: Status: Chronic (7) Severe flexion contractures of all joints: Status: Acute (8) Chronic indwelling Aburto catheter: Status: Acute
--- NOTE | 2022-08-07 02:19 | EXP.SEPSISRE ---
[facility] Tissue Perfusion Eval Sepsis Re-Evaluation Performed: Yes Date Performed: 08/07/22 Time Performed: 02:00
--- NOTE | 2022-08-07 02:21 | EXP.EVENT.NO ---
Call from bedside RN to notify me of drop in blood pressure post IV fluid bolus. Patient has now had 30ml/kg bolus of NS for SIRS vs SEPSIS. Current SBP in the 70s with MAP <65. Pt mentating appropriately without distress. Will initiate Levophed at this time and transfer patient to stepdown. RN at bedside in agreement with this plan. AM labs ordered, lactic ordered and pending.
--- NOTE | 2022-08-07 02:25 | PC.NURSE ---
pt transferring to step down for levophed drip, bp 69/29 after boluses complete, starting levo drip now at 10mcg/min
--- NOTE | 2022-08-07 02:42 | PC.NURSE ---
0230-bp 68/28 0235-bp 102/37, decreased levo drip to 8mcg/min 0240-bp 128/42, decreased levo drip to 4mcg/min
--- NOTE | 2022-08-07 03:25 | PC.NURSE ---
changed santacruz catheter per order, placed 18FR santacruz catheter, sending UA to lab per protocol
--- NOTE | 2022-08-07 03:40 | PC.NURSE ---
0255-bp 86/39, increased levo drip to 6mcg/min 0300-bp 108/38
--- NOTE | 2022-08-07 05:21 | PC.NURSE ---
bp 89/34, increased levo drip to 8mcg/min
[2022-08-07 05:46] LABS: Basophils # 0.1 K/mm3 (0-0.2); Basophils % 0.2 % (0.1-2.0); Eosinophils # 0.1 K/mm3 (0.0-0.4); Eosinophils % 0.2 % (0.1-12.0); Hematocrit 35.9 % (37.0-47.0); Hemoglobin 12.1 g/dL (12.2-16.2); Lymphocytes # 1.9 K/mm3 (0.7-4.5); Lymphocytes % 4.5 % (10-50); Mean Corpuscular HGB Conc 33.6 g/dL (31.8-35.4); Mean Corpuscular Hemoglobin 29.3 pg (27.0-31.2); Mean Corpuscular Volume 87.3 fl (81-99); Mean Platelet Volume 8.3 fl (7.4-10.4); Monocytes # 0.9 K/mm3 (0.1-1.0); Monocytes % 2.1 % (1.7-9.3); Neutrophils # 37.6 K/mm3 (1.8-7.8); Neutrophils % 92.9 % (37.0-80.0); Platelet Count 291 K/mm3 (142-424); Red Blood Count 4.11 M/mm3 (4.20-5.40); Red Cell Distribution Width 14.2 % (11.5-17.5)
[2022-08-07 05:53] LABS: MANUAL DIFFERENTIAL MANUAL DIFFERENTIAL (MANUAL DIFF); White Blood Count 40.5 K/mm3 (4.8-10.8)
--- NOTE | 2022-08-07 05:56 | PC.NURSE ---
notified LUCY Menchaca of pt's critical wbc of 40.5 and that lab is sending for a smear review
[2022-08-07 05:58] LABS: Chloride 104 mmol/L (98-107); Potassium 3.1 mmoL/L (3.5-5.1); Sodium 136 mmol/L (136-145)
[2022-08-07 06:03] LABS: Anion Gap 9.1 mEq/L (5-15); Blood Urea Nitrogen 20 mg/dl (7-17); Calcium 7.4 mg/dl (8.4-10.2); Carbon Dioxide 26 mmol/L (22.0-30.0); Creatinine Clearance Estimated 57 mL/min (50-200); Estimated Glomerular Filt Rate 158 ml/min (>60); GFR (African American) 191 ML/MIN (>60); Glucose 117 mg/dl (74-100); Lactic Acid 0.7 mmol/L (0.7-2.1)
--- NOTE | 2022-08-07 06:05 | PC.NURSE ---
pt had fever of 100.6, tylenol given per emar
[2022-08-07 06:19] LABS: Lymphocytes % 6 % (10-50); Neutrophils % 94 % (42-76); Total Cells Counted 100
[2022-08-07 06:20] LABS: Platelet Estimate Normal; RBC Morphology Normal
--- NOTE | 2022-08-07 07:52 | EXP.PHA.CONS ---
Pharmacy Consult Date: 08/07/22 Time: 07:52 Referring provider: DR. SILVA Reason for Consult:: VANCOMYCIN DOSING Allergies Allergy/AdvReac Type Severity Reaction Status Date / Time Penicillins Allergy Verified 08/06/22 18:37 Sulfa (Sulfonamide Allergy Verified 08/06/22 18:37 Antibiotics) sulfamethoxazole Allergy Verified 08/06/22 18:37 [From ] trimethoprim [From ] Allergy Verified 08/06/22 18:37 Home Medications Medication Instructions Recorded Confirmed Type aspirin 81 mg tablet,delayed 81 mg PO DAILY heart health 09/03/19 08/06/22 History release (Adult Low Dose Aspirin) atorvastatin 10 mg tablet 10 mg PO HS Cholesterol 09/03/19 08/06/22 History diazepam 5 mg tablet (Valium) 2.5 mg PO BID Tremors 09/03/19 08/06/22 History potassium chloride 10 mEq 20 meq PO DAILY Supplement 07/31/21 08/06/22 History tablet,extended release ascorbic acid (vitamin C) 500 mg 500 mg PO DAILY wound 08/01/21 08/06/22 History tablet levothyroxine 200 mcg tablet 200 mcg PO DAILY hypothyroidism 08/01/21 08/06/22 History oxybutynin chloride 5 mg 5 mg PO DAILY urinary retention 08/01/21 08/06/22 History tablet,extended release 24 hr pantoprazole 20 mg tablet,delayed 20 mg PO DAILY GERD 08/01/21 08/06/22 History release Lactobacillus acidophilus 1 cap PO DAILY GI health 08/06/22 08/06/22 History (Acidophilus capsule) carvedilol 3.125 mg tablet 3.125 mg PO BID Hypertension 08/06/22 08/06/22 History furosemide 40 mg tablet 40 mg PO DAILY Fluid 08/06/22 08/06/22 History ibuprofen 125 mg-acetaminophen 250 1 tab PO HS Pain 08/06/22 08/06/22 History mg tablet (Advil Dual Action) levothyroxine 50 mcg tablet 50 mcg PO DAILY hypothyroidism 08/06/22 08/06/22 History (Synthroid) mirtazapine 15 mg tablet (Remeron) 7.5 mg PO HS appetite stimulant 08/06/22 08/06/22 History sennosides 8.6 mg tablet (senna) 8.6 mg PO HS loose stool 08/06/22 08/06/22 History New Prescriptions to Start Prescriptions: Height: 1.7 m Weight: 68.492 kg Laboratory Results:: Laboratory Results - last 24 hr 08/06/22 16:40: WBC 32.9 H*, RBC 4.18 L, Hgb 12.3, Hct 36.8 L, MCV 88.0, MCH 29.4, MCHC 33.4, RDW 14.4, Plt Count 262, MPV 8.3, Neut % (Auto) 92.8 H, Lymph % (Auto) 4.2 L, [place] % (Auto) 1.5 L, Eos % (Auto) 1.0, Baso % (Auto) 0.4, Neut # (Auto) 30.6 H, Lymph # (Auto) 1.4, [place] # (Auto) 0.5, Eos # (Auto) 0.4, Baso # (Auto) 0.1, Total Counted 100, Neutrophils % (Manual) 88 H, Lymphocytes % (Manual) 8 L, Monocytes % (Manual) 3, Eosinophils % (Manual) 1, Platelet Estimate Normal, RBC Morphology Normal 08/06/22 16:40: Sodium 134 L, Potassium 3.1 L, Chloride 98, Carbon Dioxide 31 H, Anion Gap 8.1, BUN 23 H, Creatinine 0.40 L, Estimated Creat Clear 57, Estimated GFR 158, Est GFR ( Amer) 191, Glucose 129 H, Calcium 7.9 L, Total Bilirubin 0.4, AST 138 H, ALT 94 H, Alkaline Phosphatase 224 H, Total Protein 5.8 L, Albumin 2.7 L, Globulin 3.1, Albumin/Globulin Ratio 0.9 L, Procalcitonin 24.6 H 08/06/22 16:40: ESR 75 H 08/06/22 16:40: C-Reactive Protein 57.5 H 08/06/22 16:56: Urine Color Yellow, Urine Appearance Cloudy, Urine pH 8.5, Ur Specific [place] <= 1.005, Urine Protein Trace, Urine Glucose (UA) Negative, Urine Ketones Negative, Urine Blood Negative, Urine Nitrate Negative, Urine Bilirubin Negative, Urine Urobilinogen 0.2, Ur Leukocyte Esterase 3+ A, Urine RBC Occasional, Urine WBC 10-20, Ur Squamous Epith Cells Occasional, Ur Transition Epith Cell Occ, Triple Phos Crystals 2+, Amorphous Sediment 4+, Urine Bacteria 3+ 10/12/22 17:45: Lactate 1.1 08/06/22 18:30: SARS-CoV-2 (PCR) Not detected, Influenza A Untype (PCR) Not detected, Influenza Type B (PCR) Not detected 08/07/22 05:40: WBC 40.5 H*, RBC 4.11 L, Hgb 12.1 L, Hct 35.9 L, MCV 87.3, MCH 29.3, MCHC 33.6, RDW 14.2, Plt Count 291, MPV 8.3, Neut % (Auto) 92.9 H, Lymph % (Auto) 4.5 L, [place] % (Auto) 2.1, Eos % (Auto) 0.2, Baso % (Auto) 0.2, Neut # (Auto) 37.6 H, Lymph # (Auto) 1.9, [place] # (
[2022-08-07 08:14] LABS: Alanine Aminotransferase 63 U/L (12-78); Albumin Level 2.6 g/dl (3.5-5.0); Alkaline Phosphatase 175 U/L (38-126); Aspartate Amino Transferase 80 U/L (14-36); Bilirubin,Direct 0.1 mg/dl (0.0-0.4); Bilirubin,Indirect 0.2 mg/dL (0.0-0.9); Bilirubin,Total 0.3 mg/dl (0.2-1.3); Bilirubin,Unconjugated 0.2 mg/dL (0.0-1.1); Total Protein,Serum 5.7 g/dl (6.3-8.2)
--- NOTE | 2022-08-07 09:10 | SW/DCPLANNER ---
Addendum entered by Angela Vega 08/11/22 10:19: The plan for this patient is to return to [facility] today w/ 8 more days of IV Cefepime 2G Q12. Due to patient being contracted PICC line will not be placed and patient will discharge with peripheral IV: I will updated Enedelia gardner/ [facility]. Patient will require a COVID swab prior to returning. Addendum entered by Angela Vega 08/08/22 09:52: Updated patient information has been faxed to [facility]. I have relayed information to Adele gardner/ [facility] that per MD patient will not discharge over the weekend. Original Note: This patient currently resides at [facility] level of care. I will continue to follow up with Enedelia at [facility] until patient is medically stable for discharge. stated during morning rounds he would call and have a conversation with patient's son regarding plans. Discharge date is unknown at this time.
--- NOTE | 2022-08-07 09:45 | EXP.PN ---
Subjective *Date: 08/07/22 *Time: 09:45 Interval history: Patient continues to be febrile, including 100.6 at 6 AM this morning and 101.0 at 8 AM today. This morning she reports feeling tired and she does have some discomfort in her stomach. Patient reaffirms that she wishes to be a DNR/DNI. Exam Data for Last 24 hours Vital signs and Labs for Last 24 Hours: Temp Pulse Resp BP Pulse Ox 101.0 F H 101 H 23 97/33 L 98 08/07/22 08:00 08/07/22 07:00 08/07/22 07:00 08/07/22 07:00 08/07/22 07:00 Laboratory Results - last 24 hr 08/06/22 16:40: WBC 32.9 H*, RBC 4.18 L, Hgb 12.3, Hct 36.8 L, MCV 88.0, MCH 29.4, MCHC 33.4, RDW 14.4, Plt Count 262, MPV 8.3, Neut % (Auto) 92.8 H, Lymph % (Auto) 4.2 L, [place] % (Auto) 1.5 L, Eos % (Auto) 1.0, Baso % (Auto) 0.4, Neut # (Auto) 30.6 H, Lymph # (Auto) 1.4, [place] # (Auto) 0.5, Eos # (Auto) 0.4, Baso # (Auto) 0.1, Total Counted 100, Neutrophils % (Manual) 88 H, Lymphocytes % (Manual) 8 L, Monocytes % (Manual) 3, Eosinophils % (Manual) 1, Platelet Estimate Normal, RBC Morphology Normal 08/06/22 16:40: Sodium 134 L, Potassium 3.1 L, Chloride 98, Carbon Dioxide 31 H, Anion Gap 8.1, BUN 23 H, Creatinine 0.40 L, Estimated Creat Clear 57, Estimated GFR 158, Est GFR ( Amer) 191, Glucose 129 H, Calcium 7.9 L, Total Bilirubin 0.4, AST 138 H, ALT 94 H, Alkaline Phosphatase 224 H, Total Protein 5.8 L, Albumin 2.7 L, Globulin 3.1, Albumin/Globulin Ratio 0.9 L, Procalcitonin 24.6 H 08/06/22 16:40: ESR 75 H 08/06/22 16:40: C-Reactive Protein 57.5 H 08/06/22 16:56: Urine Color Yellow, Urine Appearance Cloudy, Urine pH 8.5, Ur Specific [place] <= 1.005, Urine Protein Trace, Urine Glucose (UA) Negative, Urine Ketones Negative, Urine Blood Negative, Urine Nitrate Negative, Urine Bilirubin Negative, Urine Urobilinogen 0.2, Ur Leukocyte Esterase 3+ A, Urine RBC Occasional, Urine WBC 10-20, Ur Squamous Epith Cells Occasional, Ur Transition Epith Cell Occ, Triple Phos Crystals 2+, Amorphous Sediment 4+, Urine Bacteria 3+ 08/06/22 17:45: Lactate 1.1 08/06/22 18:30: SARS-CoV-2 (PCR) Not detected, Influenza A Untype (PCR) Not detected, Influenza Type B (PCR) Not detected 08/07/22 05:40: WBC 40.5 H*, RBC 4.11 L, Hgb 12.1 L, Hct 35.9 L, MCV 87.3, MCH 29.3, MCHC 33.6, RDW 14.2, Plt Count 291, MPV 8.3, Neut % (Auto) 92.9 H, Lymph % (Auto) 4.5 L, [place] % (Auto) 2.1, Eos % (Auto) 0.2, Baso % (Auto) 0.2, Neut # (Auto) 37.6 H, Lymph # (Auto) 1.9, [place] # (Auto) 0.9, Eos # (Auto) 0.1, Baso # (Auto) 0.1, Total Counted 100, Neutrophils % (Manual) 94 H, Lymphocytes % (Manual) 6 L, Platelet Estimate Normal, RBC Morphology Normal 08/07/22 05:40: Sodium 136, Potassium 3.1 L, Chloride 104, Carbon Dioxide 26, Anion Gap 9.1, BUN 20 H, Creatinine 0.40 L, Estimated Creat Clear 57, Estimated GFR 158, Est GFR ( Amer) 191, Glucose 117 H, Calcium 7.4 L 08/07/22 05:40: Lactate 0.7 08/07/22 05:40: Total Bilirubin 0.3, Direct Bilirubin 0.1, Conjugated Bilirubin 0.0, Indirect Bilirubin 0.2, Unconjugated Bilirubin 0.2, AST 80 H D, ALT 63 D, Alkaline Phosphatase 175 H, Total Protein 5.7 L, Albumin 2.6 L I & O for Last 24 hours: Intake & Output 08/04/22 08/05/22 08/06/22 08/07/22 23:59 23:59 23:59 23:59 Intake Total 2011 Output Total 0 / 0 725 / 725 Balance 0 / 0 1287 / 1287 Weight 68.492 kg 68.492 kg Microbiology Reports for the Last 24 Hours: Microbiology 08/06/22 16:56 Urine,Catheterized Urine Culture - Preliminary Constitutional Constitutional: moderate distress, chronically ill appearing and cooperative *Routine HEENT Exam Head: Present normocephalic and atraumatic Eye: Present EOMI and PERRL ENT: Present mucous membranes moist and oropharynx clear *Routine Neck Exam Neck: Present supple; Absent full ROM Comments: head tilted to the right *Routine Respiratory Exam Respiratory: Present decreased breath sounds and crackles (scant, diffuse ); Absent accessory muscle use or respiratory distress Comments: limite
--- NOTE | 2022-08-07 12:40 | DIET.NUTRFU ---
Spoke to [facility], patients regular nusre. Patient tolerates a MSOFT chopped meat diet with thin liquids. She needs 1:1 assistance with meals. Nurse reports she has good appetite and her wt is stable. She also receives house supplement 60ml TID and proheal 60ml QD and ice cream BID for additional nutritional support. Updated our date to chopped meat with ensure at meals and ice cream at lunch and dinner. Will also start prostat AWC, vitamin C and zinc were already started.
--- NOTE | 2022-08-07 15:43 | PC.NURSE ---
Pt was mildly confused this am but became alert and oriented x4 upon completely waking up. She's remained on 2L NC with O2 sats measuring > 90%. Levo gtt is currently at 10 mcg/min. It's been titrated to keep map >65% (per MD). Soap suds enema administered in the am. She has had one large, loose bm since then. Pt was cleaned and bed was changed. She's been NSR/ST on telemetry. She has had tremors that interfere with telemetry reading at times. Her santacruz is to bedside draining ricardo colored urine. She's had 1000mls out thus far. BUE are contracted, BLE are very rigid. BLE are scaly, have +2 edema and weeping noted. RLE with erythema. stage 3 to coccyx. Steri strips in place to left forearm skin tear (present on admission). Some scaling to scalp and most of her body. Large area of erythema to left flank. Family is currently at bedside. No complaints at this time. Bed is locked and in the lowest position, call light is within reach.
[2022-08-07 19:51] LABS: POC Glucose,Bedside 109 (70-110)
--- NOTE | 2022-08-07 23:02 | PC.NURSE ---
levophed gtt titrated to 12 mcg/min
[2022-08-08] VITALS (24 sets, daily range): BP systolic 91–146; BP diastolic 36–61; PULSE 70–119; RESP 18–22; TEMP 36.5–38.2; O2SAT 92–100; BMI 24.0
--- NOTE | 2022-08-08 01:42 | PC.NURSE ---
0048 levophed gtt titrated to 10 mcg/min 0136 levophed drip titrated to 8 mcg/min
--- NOTE | 2022-08-08 02:38 | PC.NURSE ---
levophed gtt titrated to 6 mcg/min
--- NOTE | 2022-08-08 02:43 | ECG_ITS ---
APPROVED REPORT Exam: Resting ECG HR:114 bpm ECG Measurements Heart Rate 114 AXES GA 192 P 57 QRSd 100 QRS -5 QT 427 T 57 QTc 495 Conclusion SINUS TACHYCARDIA MODERATE T-WAVE ABNORMALITY, CONSIDER ANTERIOR ISCHEMIA [-0.1+ mV T-WAVE IN V3/V4] ABNORMAL ECG UNCONFIRMED REPORT Electronically signed by : Mickey Armendariz MD 08/08/2022 15:25:05
--- NOTE | 2022-08-08 02:50 | PC.NURSE ---
Martin Menchaca notified of positive blood Cx results.
--- NOTE | 2022-08-08 03:05 | PC.WOUNDNOTE ---
Addendum entered by Lizett Riley RN 08/08/22 03:19: 3 superficial unstageable open lesions to (L) calf Multiple lesions to LLE. Areas open draining with bloody drainage area to (L) trunk red, swollen Original Note:
--- NOTE | 2022-08-08 03:06 | PC.WOUNDNOTE ---
scaly lesions and open areas to BLE
--- NOTE | 2022-08-08 03:07 | PC.WOUNDNOTE ---
unstageable with irregular borders. Yellow necrotic tissue present and dry flaky skin. Multiple open areas present. Weeping to LLE
--- NOTE | 2022-08-08 03:11 | PC.WOUNDNOTE ---
Unstageable wound to (R) heel. Center pink with yellow tissue covering center, outer edges, dry flaky skin with foul odor. Edema present. Tissue weeping.
--- NOTE | 2022-08-08 03:15 | PC.WOUNDNOTE ---
unstageable to coccyx. Yellow tissue covering center surrounded by 2 unstageables. Surrounding tissue red, excoriated and flaking. Scar tissue also present.
--- NOTE | 2022-08-08 03:32 | PC.NURSE ---
during pts bath she was noted to suddenly become less responsive. pt would not respond verbally and would not open eyes to sternal rub. [employer] Migel Menchaca notified at 0238 and came to room to assess pt. Shortly after, pt became responsive, refusing lab work. pt remains responsive. No further orders at this time. levophed gtt currently infusing at 6 mcg/min. pt has been tachycardic, HR 101-126. Temp has been 100.8-101.6, medicated prn per dec. SBP 94-117. She remains on 2L NC. O2 sats 94-96%. Pt has been turned Q2hrs. Heels elevated off mattress. dressings applied to right heel and coccyx. meds crushed and given with pudding. vital signs currently stable.
--- NOTE | 2022-08-08 06:05 | PC.NURSE ---
Levophed titrated to 6 mcg/min
[2022-08-08 06:36] LABS: Basophils # 0.1 K/mm3 (0-0.2); Basophils % 0.4 % (0.1-2.0); Eosinophils # 0.3 K/mm3 (0.0-0.4); Eosinophils % 1.3 % (0.1-12.0); Hematocrit 33.5 % (37.0-47.0); Hemoglobin 11.2 g/dL (12.2-16.2); Lymphocytes # 2.3 K/mm3 (0.7-4.5); Lymphocytes % 9.2 % (10-50); Mean Corpuscular HGB Conc 33.5 g/dL (31.8-35.4); Mean Corpuscular Hemoglobin 29.2 pg (27.0-31.2); Mean Platelet Volume 8.9 fl (7.4-10.4); Monocytes # 1.1 K/mm3 (0.1-1.0); Monocytes % 4.4 % (1.7-9.3); Neutrophils # 21.2 K/mm3 (1.8-7.8); Neutrophils % 84.7 % (37.0-80.0); Platelet Count 228 K/mm3 (142-424); Red Blood Count 3.85 M/mm3 (4.20-5.40); Red Cell Distribution Width 14.5 % (11.5-17.5)
[2022-08-08 06:39] LABS: MANUAL DIFFERENTIAL MANUAL DIFFERENTIAL (MANUAL DIFF)
[2022-08-08 06:40] LABS: Chloride 108 mmol/L (98-107); Potassium 3.1 mmoL/L (3.5-5.1); Sodium 137 mmol/L (136-145)
[2022-08-08 06:42] LABS: Alanine Aminotransferase 40 U/L (12-78); Aspartate Amino Transferase 39 U/L (14-36); Blood Urea Nitrogen 18 mg/dl (7-17); Creatinine Clearance Estimated 57 mL/min (50-200); Estimated Glomerular Filt Rate 158 ml/min (>60); GFR (African American) 191 ML/MIN (>60)
[2022-08-08 06:43] LABS: Albumin Level 2.2 g/dl (3.5-5.0); Albumin/Globulin Ratio 0.7 (1.1-1.8); Alkaline Phosphatase 178 U/L (38-126); Anion Gap 7.1 mEq/L (5-15); Bilirubin,Total 0.3 mg/dl (0.2-1.3); Calcium 7.3 mg/dl (8.4-10.2); Carbon Dioxide 25 mmol/L (22.0-30.0); Glucose 106 mg/dl (74-100); Total Protein,Serum 5.2 g/dl (6.3-8.2)
[2022-08-08 07:07] LABS: Erythrocyte Sedimentation Rate 115 mm/hr (0-30)
[2022-08-08 07:30] LABS: Lymphocytes % 8 % (10-50); Monocytes % 3 % (2-9); Neutrophils % 89 % (42-76); Platelet Estimate Normal; RBC Morphology Normal; Total Cells Counted 100
--- NOTE | 2022-08-08 09:21 | EXP.PN ---
Subjective *Date: 08/08/22 *Time: 09:38 Interval history: No acute events overnight. Patient was somewhat difficult to arouse around 3 AM, however she did wake up and reassure overnight nurse practitioner and nursing staff that she was all right. This morning she says she does continue to feel a little bit better today. Exam Data for Last 24 hours Vital signs and Labs for Last 24 Hours: Temp Pulse Resp BP Pulse Ox 99.7 F H 91 H 20 114/52 L 100 08/08/22 04:00 08/08/22 08:00 08/08/22 08:00 08/08/22 08:00 08/08/22 08:00 Laboratory Results - last 24 hr 08/07/22 05:48: POC Glucose 109 08/08/22 05:40: WBC 25.0 H* D, RBC 3.85 L, Hgb 11.2 L, Hct 33.5 L, MCV 87.0, MCH 29.2, MCHC 33.5, RDW 14.5, Plt Count 228, MPV 8.9, Neut % (Auto) 84.7 H, Lymph % (Auto) 9.2 L, [place] % (Auto) 4.4, Eos % (Auto) 1.3, Baso % (Auto) 0.4, Neut # (Auto) 21.2 H, Lymph # (Auto) 2.3, [place] # (Auto) 1.1 H, Eos # (Auto) 0.3, Baso # (Auto) 0.1, Total Counted 100, Neutrophils % (Manual) 89 H, Lymphocytes % (Manual) 8 L, Monocytes % (Manual) 3, Platelet Estimate Normal, RBC Morphology Normal, ESR 115 H 08/08/22 05:40: Sodium 137, Potassium 3.1 L, Chloride 108 H, Carbon Dioxide 25, Anion Gap 7.1, BUN 18 H, Creatinine 0.40 L, Estimated Creat Clear 57, Estimated GFR 158, Est GFR ( Amer) 191, Glucose 106 H, Calcium 7.3 L, Total Bilirubin 0.3, AST 39 H D, ALT 40 D, Alkaline Phosphatase 178 H, C-Reactive Protein 257.0 H, Total Protein 5.2 L, Albumin 2.2 L D, Globulin 3.0, Albumin/Globulin Ratio 0.7 L I & O for Last 24 hours: Intake & Output 08/05/22 08/06/22 08/07/22 08/08/22 23:59 23:59 23:59 23:59 Intake Total 4449 / 4449 1543.854 / 1543.854 Output Total 0 / 0 1725 / 3025 1400 / 1400 Balance 0 / 0 2724 / 1424 143.854 / 143.854 Weight 68.492 kg 68.49 kg 69.54 kg Microbiology Reports for the Last 24 Hours: Microbiology 08/06/22 17:47 Blood - Other Blood Culture - Preliminary Gram Positive Cocci 08/06/22 17:47 Blood - Other Blood Culture - Preliminary 08/06/22 16:56 Urine,Catheterized Urine Culture - Preliminary Constitutional Constitutional: mild distress, chronically ill appearing and cooperative *Routine HEENT Exam Head: Present normocephalic and atraumatic Eye: Present EOMI and PERRL ENT: Present mucous membranes moist and oropharynx clear *Routine Neck Exam Neck: Present supple; Absent full ROM Comments: head tilted to the right *Routine Respiratory Exam Respiratory: Present decreased breath sounds and crackles (scant, diffuse ); Absent accessory muscle use or respiratory distress Comments: limited by patient being immobile with contractures and advanced Parkinsons. *Routine Cardiovascular Exam Cardiovascular: Present RRR (tachycardia with regular rhythm ), murmur and tachycardia *Routine Abdominal Exam Abdominal: Present soft, normoactive bowel sounds, tenderness (mild epigastric tenderness ) and distended; Absent rebound or guarding *Routine Extremities Exam Extremities: Present pulses intact; Absent edema, full ROM, normal capillary refill (sluggish cap refill) or tenderness Comments: contractures of arms and legs, more so elbows and hands and fingers *Routine Skin Exam Skin: Present warm (diffusely warm to the touch ) Comments: indurated erythema of left side/flank slightly improved today *Routine Neurological Exam Neurological: Present alert, oriented X3, motor deficit, abnormal gait and normal speech; Absent normal reflexes, moving all extremities or normal tone Routine Psychiatric Exam Psychiatric: Present normal affect, normal thought process, cooperative, good insight, good judgment and anxious Assessment and Plan *Assessment and plan (1) Cellulitis: Status: Acute Qualifiers: Site of cellulitis: trunk Site of cellulitis of trunk: abdominal wall Qualified Code(s): L03.311 - Cellulitis of abdominal wall Category: Medical Code(s): L03.90 - Cellul
--- NOTE | 2022-08-08 14:37 | PC.NURSE ---
Addendum entered by Tran Henry RN 08/08/22 18:14: BP 128/46. LEVOPHED DRIP AT 2 MCG/MIN. Original Note: PT IS RESTING IN BED. FAMILY AT BEDSIDE. ALERT AND ORIENTED X3. PT HAS BEEN SLEEPING ON AND OFF T/O THE SHIFT. TURNED AND REPOSITIONED FREQUENTLY. PT HAS MULTIPLE AREAS OF SKIN BREAKDOWN. UNSTAGEABLE ULCERS NOTED TO THE COCCYX AND RGHT HEEL. OPEN AREAS NOTED TO BLE WITH REDNESS/SWELLING. PT IS CONTRACTED. PT REQUIRES ASSISTANCE WITH FEEDING. LEVOPHED DRIP AT 3MCG/MIN. BP 108/45. WILL CONTINUE TO MONITOR.
[2022-08-09] VITALS (27 sets, daily range): BP systolic 97–139; BP diastolic 37–74; PULSE 67–120; RESP 16–20; TEMP 36.5–37.2; O2SAT 95–100; BMI 27.8
--- NOTE | 2022-08-09 03:48 | PC.NURSE ---
Pt remains on levophed gtt. Currently infusing @ 4 mcg/min. SHe is NSR w/ PVCs on telemetry. Lungs are diminished t/o. She is on 1.5 L O2 NC. She has remained afebrile this shift. Bed bath given. Pt turned Q2 hr. F/C draining to bedside with clear, yellow urine. Pt has had one BM this shift. Pt continues to have erythema to (L) flank and BLE. SOme open areas noted. DSG applied to coccyx. No other concerns.
[2022-08-09 05:37] LABS: Basophils # 0.1 K/mm3 (0-0.2); Basophils % 0.5 % (0.1-2.0); Eosinophils # 0.8 K/mm3 (0.0-0.4); Hematocrit 34.5 % (37.0-47.0); Hemoglobin 11.5 g/dL (12.2-16.2); Lymphocytes # 2.7 K/mm3 (0.7-4.5); Mean Corpuscular HGB Conc 33.3 g/dL (31.8-35.4); Mean Corpuscular Hemoglobin 29.4 pg (27.0-31.2); Mean Corpuscular Volume 88.3 fl (81-99); Mean Platelet Volume 8.6 fl (7.4-10.4); Monocytes # 0.6 K/mm3 (0.1-1.0); Monocytes % 3.8 % (1.7-9.3); Neutrophils # 12.4 K/mm3 (1.8-7.8); Neutrophils % 74.7 % (37.0-80.0); Platelet Count 207 K/mm3 (142-424); Red Cell Distribution Width 14.7 % (11.5-17.5); White Blood Count 16.6 K/mm3 (4.8-10.8)
[2022-08-09 05:39] LABS: MANUAL DIFFERENTIAL MANUAL DIFFERENTIAL (MANUAL DIFF)
[2022-08-09 05:54] LABS: Eosinophils % 2 % (0-3); Lymphocytes % 12 % (10-50); Neutrophils % 83 % (42-76); Platelet Estimate Normal; RBC Morphology Normal; Total Cells Counted 100
[2022-08-09 05:55] LABS: Peripheral Smear Review Scanned Result
[2022-08-09 05:58] LABS: Alanine Aminotransferase 34 U/L (12-78); Albumin Level 1.9 g/dl (3.5-5.0); Albumin/Globulin Ratio 0.7 (1.1-1.8); Alkaline Phosphatase 172 U/L (38-126); Anion Gap 7.6 mEq/L (5-15); Aspartate Amino Transferase 29 U/L (14-36); Bilirubin,Total 0.3 mg/dl (0.2-1.3); Blood Urea Nitrogen 16 mg/dl (7-17); Calcium 7.3 mg/dl (8.4-10.2); Carbon Dioxide 26 mmol/L (22.0-30.0); Chloride 109 mmol/L (98-107); Creatinine Clearance Estimated 66 mL/min (50-200); Estimated Glomerular Filt Rate 220 ml/min (>60); GFR (African American) 266 ML/MIN (>60); Globulin 2.6 g/dL (1.3-3.2); Glucose 99 mg/dl (74-100); Potassium 3.6 mmoL/L (3.5-5.1); Sodium 139 mmol/L (136-145); Total Protein,Serum 4.5 g/dl (6.3-8.2)
[2022-08-09 06:16] LABS: Vancomycin,Trough 8.5 ug/mL (5.0-10.0)
--- NOTE | 2022-08-09 07:03 | PC.NURSE ---
Spoke with Nightmanuela. OK to give Vancomycin.
--- NOTE | 2022-08-09 10:36 | DIET.NUTRFU ---
Pt PO intake poor with 15, 25, 10% recorded at last 3 meals. Pt receiving Ensure TID and ice cream BID to help supplement meals. Pt with multiple areas of skin breakdown per RN. Will encourage continued PO intake and supplement intake. Will monitor Ensure acceptance and may add extra protein if needed.
--- NOTE | 2022-08-09 11:24 | EXP.PN ---
Subjective *Date: 08/09/22 *Time: 11:24 Interval history: Patient again reports feeling better today. She has a small appetite but this is typical for her. She has a headache and some discomfort in her hands, she says this is typically resolved with Tylenol. Exam Data for Last 24 hours Vital signs and Labs for Last 24 Hours: Temp Pulse Resp BP Pulse Ox 97.9 F 68 20 119/44 L 100 08/09/22 08:06 08/09/22 10:00 08/09/22 10:00 08/09/22 10:00 08/09/22 10:00 Laboratory Results - last 24 hr 08/06/22 16:56: Urine Color Yellow, Urine Appearance Cloudy, Urine pH 8.5, Ur Specific [place] <= 1.005, Urine Protein Trace, Urine Glucose (UA) Negative, Urine Ketones Negative, Urine Blood Negative, Urine Nitrate Negative, Urine Bilirubin Negative, Urine Urobilinogen 0.2, Ur Leukocyte Esterase 3+ A, Urine RBC Occasional, Urine WBC 10-20, Ur Squamous Epith Cells Occasional, Ur Transition Epith Cell Occ, Triple Phos Crystals 2+, Amorphous Sediment 4+, Urine Bacteria 3+ 08/09/22 05:30: WBC 16.6 H D, RBC 3.90 L, Hgb 11.5 L, Hct 34.5 L, MCV 88.3, MCH 29.4, MCHC 33.3, RDW 14.7, Plt Count 207, MPV 8.6, Neut % (Auto) 74.7, Lymph % (Auto) 16.0, [place] % (Auto) 3.8, Eos % (Auto) 5.0, Baso % (Auto) 0.5, Neut # (Auto) 12.4 H, Lymph # (Auto) 2.7, [place] # (Auto) 0.6, Eos # (Auto) 0.8 H, Baso # (Auto) 0.1, Total Counted 100, Neutrophils % (Manual) 83 H, Band Neutrophils % 3.0, Lymphocytes % (Manual) 12, Eosinophils % (Manual) 2, Platelet Estimate Normal, RBC Morphology Normal 08/09/22 05:30: Sodium 139, Potassium 3.6, Chloride 109 H, Carbon Dioxide 26, Anion Gap 7.6, BUN 16, Creatinine 0.30 L D, Estimated Creat Clear 66, Estimated GFR 220, Est GFR ( Amer) 266 D, Glucose 99, Calcium 7.3 L, Total Bilirubin 0.3, AST 29 D, ALT 34, Alkaline Phosphatase 172 H, Total Protein 4.5 L, Albumin 1.9 L D, Globulin 2.6, Albumin/Globulin Ratio 0.7 L 08/09/22 05:30: Vancomycin Trough 8.5 I & O for Last 24 hours: Intake & Output 08/06/22 08/07/22 08/08/22 08/09/22 23:59 23:59 23:59 23:59 Intake Total 4449 / 4449 3597.854 / 3597.854 2381 / 2381 Output Total 0 / 0 1725 / 3025 2150 / 2150 1280 / 1280 Balance 0 / 0 2724 / 1424 1447.854 / 4748.439 4588 / 1101 Weight 68.492 kg 68.49 kg 69.54 kg 80.371 kg Microbiology Reports for the Last 24 Hours: Microbiology 08/06/22 17:47 Blood - Other Blood Culture - Preliminary Strep dysgalactiae/canis 08/06/22 16:56 Urine,Catheterized Urine Culture - Preliminary Gram Negative Rods Constitutional Constitutional: no acute distress, chronically ill appearing and cooperative *Routine HEENT Exam Head: Present normocephalic and atraumatic Eye: Present EOMI and PERRL ENT: Present mucous membranes moist and oropharynx clear *Routine Neck Exam Neck: Present supple; Absent full ROM Comments: head tilted to the right *Routine Respiratory Exam Respiratory: Present decreased breath sounds and crackles (scant, diffuse ); Absent accessory muscle use or respiratory distress Comments: limited by patient being immobile with contractures and advanced Parkinsons. *Routine Cardiovascular Exam Cardiovascular: Present RRR (tachycardia with regular rhythm ), murmur and tachycardia *Routine Abdominal Exam Abdominal: Present soft, normoactive bowel sounds, tenderness (mild epigastric tenderness ) and distended; Absent rebound or guarding *Routine Extremities Exam Extremities: Present edema (2+ pitting edema to mid shins bilaterally ) and pulses intact; Absent full ROM, normal capillary refill (sluggish cap refill) or tenderness Comments: contractures of arms and legs, more so elbows and hands and fingers *Routine Skin Exam Skin: Present warm (diffusely warm to the touch ) Comments: indurated erythema of left side/flank slightly improved today *Routine Neurological Exam Neurological: Present alert, oriented X3, motor deficit, abnormal gait and normal speech; Absent normal reflexes
[2022-08-09 11:30] LABS: Vancomycin,Peak 13.4 ug/ml (11-39)
--- NOTE | 2022-08-09 17:35 | PC.NURSE ---
PT IS RESTING IN BED. ALERT AND ORIENTED X4. TURNED AND REPOSITIONED IN BED. LUNG SOUNDS DIMINISHED. ABDOMEN SOFT/NON TENDER WITH ACTIVE BOWEL SOUNDS. EATING AND DRINKING WELL. PT HAS DIURESED OVER 2 L OF CLEAR/PALE YELLOW URINE AFTER IV LASIX. 3 + PITTING WEEPING EDEMA NOTED TO BLE. ULCER NOTED TO THE COCCYX WITH DRESSING. REDNESS AND OPEN AREAS NOTED TO BLE. ULCER NOTED TO THE RIGHT HEEL WITH DRESSING C/D/I. SKIN TEAR NOTED TO LFA. NSR ON THE MONITOR. O2 SATURATION 95-98% ON ROOM AIR. BP 105/46. LEVOPHED DRIP AT 1 MCG/MIN TO MAINTAIN BP. WILL CONTINUE TO MONITOR.
[2022-08-10] VITALS (10 sets, daily range): BP systolic 101–135; BP diastolic 40–56; PULSE 70–97; RESP 18–20; TEMP 36.4–37.4; O2SAT 91–99; BMI 27.8
--- NOTE | 2022-08-10 05:01 | PC.NURSE ---
Pt has been more alert this shift. Has c/o some discomfort to (L) foot. Heels floated. SCDs on at this time with intervals off. Levophed placed on standby at 0341 and currently remains. SHe has been on RA this shift. VSS. Pt turned Q2 hr. F/c draining to bedside. No BM this shift. Call light at bedside.
[2022-08-10 05:42] LABS: Basophils # 0.1 K/mm3 (0-0.2); Basophils % 0.7 % (0.1-2.0); Eosinophils # 0.5 K/mm3 (0.0-0.4); Eosinophils % 4.6 % (0.1-12.0); Hematocrit 32.9 % (37.0-47.0); Hemoglobin 10.8 g/dL (12.2-16.2); Lymphocytes % 26.5 % (10-50); Mean Corpuscular HGB Conc 32.7 g/dL (31.8-35.4); Mean Corpuscular Volume 88.6 fl (81-99); Mean Platelet Volume 8.7 fl (7.4-10.4); Monocytes # 0.5 K/mm3 (0.1-1.0); Monocytes % 4.6 % (1.7-9.3); Neutrophils # 7.2 K/mm3 (1.8-7.8); Neutrophils % 63.6 % (37.0-80.0); Platelet Count 226 K/mm3 (142-424); Red Blood Count 3.71 M/mm3 (4.20-5.40); Red Cell Distribution Width 14.5 % (11.5-17.5); White Blood Count 11.3 K/mm3 (4.8-10.8)
[2022-08-10 05:54] LABS: Chloride 106 mmol/L (98-107)
[2022-08-10 05:57] LABS: Alanine Aminotransferase 26 U/L (12-78); Alkaline Phosphatase 154 U/L (38-126); Aspartate Amino Transferase 25 U/L (14-36); Bilirubin,Total 0.3 mg/dl (0.2-1.3); Blood Urea Nitrogen 15 mg/dl (7-17); Calcium 7.3 mg/dl (8.4-10.2); Carbon Dioxide 28 mmol/L (22.0-30.0); Creatinine Clearance Estimated 66 mL/min (50-200); Estimated Glomerular Filt Rate 158 ml/min (>60); GFR (African American) 191 ML/MIN (>60); Glucose 90 mg/dl (74-100)
[2022-08-10 06:04] LABS: Anion Gap 7.1 mEq/L (5-15); Potassium 3.1 mmoL/L (3.5-5.1); Sodium 138 mmol/L (136-145)
[2022-08-10 06:07] LABS: Albumin Level 2.2 g/dl (3.5-5.0); Albumin/Globulin Ratio 0.8 (1.1-1.8); Globulin 2.9 g/dL (1.3-3.2); Total Protein,Serum 5.1 g/dl (6.3-8.2)
--- NOTE | 2022-08-10 08:39 | P.PN_ITS ---
Subjective *Date: 08/10/22 *Time: 08:39 Medical Exam Vital signs and Labs for Last 24 Hours: Temp Pulse Resp BP Pulse Ox 97.9 F 81 18 104/56 L 97 08/10/22 08:23 08/10/22 08:00 08/10/22 08:00 08/10/22 08:00 08/10/22 08:00 Laboratory Results - last 24 hr 08/09/22 10:28: Vancomycin Peak 13.4 08/10/22 05:25: WBC 11.3 H D, RBC 3.71 L, Hgb 10.8 L, Hct 32.9 L, MCV 88.6, MCH 29.0, MCHC 32.7, RDW 14.5, Plt Count 226, MPV 8.7, Neut % (Auto) 63.6, Lymph % (Auto) 26.5, [place] % (Auto) 4.6, Eos % (Auto) 4.6, Baso % (Auto) 0.7, Neut # (Auto) 7.2, Lymph # (Auto) 3.0, [place] # (Auto) 0.5, Eos # (Auto) 0.5 H, Baso # (Auto) 0.1 08/10/22 05:25: Sodium 138, Potassium 3.1 L, Chloride 106, Carbon Dioxide 28, Anion Gap 7.1, BUN 15, Creatinine 0.40 L D, Estimated Creat Clear 66, Estimated GFR 158, Est GFR ( Amer) 191 D, Glucose 90, Calcium 7.3 L, Total Bilirubin 0.3, AST 25, ALT 26, Alkaline Phosphatase 154 H, Total Protein 5.1 L, Albumin 2.2 L D, Globulin 2.9, Albumin/Globulin Ratio 0.8 L I & O for Labs for Last 24 Hours: Intake & Output 08/07/22 08/08/22 08/09/22 08/10/22 23:59 23:59 23:59 23:59 Intake Total 4449 / 4449 3597.854 / 3597.854 3897 / 3897 122 / 122 Output Total 1725 / 3025 2150 / 2150 3730 / 3730 1300 / 1300 Balance 2724 / 1424 1447.854 / 1447.854 167 / 167 -1178 / -1178 Weight 68.49 kg 69.54 kg 80.371 kg 80.371 kg Microbiology Reports for the Last 24 Hours: Microbiology 08/06/22 17:47 Blood - Other Blood Culture - Preliminary Strep dysgalactiae/canis 08/06/22 17:47 Blood - Other Blood Culture - Preliminary Strep dysgalactiae/canis 08/06/22 16:56 Urine,Catheterized Urine Culture - Preliminary Gram Negative Rods The patient's infection will respond to the chosen ABx?: Yes Is the patient receiving the right drug, dose, and route?: Yes Could a more targeted ABx be ordered?: No (CULTURES SHOW SENSITIVITY TO CEFEPIME, BLOOD AND URINE)
--- NOTE | 2022-08-10 10:37 | EXP.PN ---
Subjective *Date: 08/10/22 *Time: 10:37 Interval history: Patient again reports feeling better today. Overall she gradually continues to improve. Levophed was discontinued last night and she is maintaining adequate blood pressures overnight and this morning. Patient is transitioned from stepdown to regular floor bed. Exam Data for Last 24 hours Vital signs and Labs for Last 24 Hours: Temp Pulse Resp BP Pulse Ox 97.9 F 81 18 104/56 L 97 08/10/22 08:23 08/10/22 08:00 08/10/22 08:00 08/10/22 08:00 08/10/22 08:00 Laboratory Results - last 24 hr 08/09/22 10:28: Vancomycin Peak 13.4 08/10/22 05:25: WBC 11.3 H D, RBC 3.71 L, Hgb 10.8 L, Hct 32.9 L, MCV 88.6, MCH 29.0, MCHC 32.7, RDW 14.5, Plt Count 226, MPV 8.7, Neut % (Auto) 63.6, Lymph % (Auto) 26.5, [place] % (Auto) 4.6, Eos % (Auto) 4.6, Baso % (Auto) 0.7, Neut # (Auto) 7.2, Lymph # (Auto) 3.0, [place] # (Auto) 0.5, Eos # (Auto) 0.5 H, Baso # (Auto) 0.1 08/10/22 05:25: Sodium 138, Potassium 3.1 L, Chloride 106, Carbon Dioxide 28, Anion Gap 7.1, BUN 15, Creatinine 0.40 L D, Estimated Creat Clear 66, Estimated GFR 158, Est GFR ( Amer) 191 D, Glucose 90, Calcium 7.3 L, Total Bilirubin 0.3, AST 25, ALT 26, Alkaline Phosphatase 154 H, Total Protein 5.1 L, Albumin 2.2 L D, Globulin 2.9, Albumin/Globulin Ratio 0.8 L I & O for Last 24 hours: Intake & Output 08/07/22 08/08/22 08/09/22 08/10/22 23:59 23:59 23:59 23:59 Intake Total 4449 / 4449 3597.854 / 3597.854 3897 / 3897 482 / 482 Output Total 1725 / 3025 2150 / 2150 3730 / 3730 1300 / 1300 Balance 2724 / 1424 1447.854 / 1447.854 167 / 167 -818 / -818 Weight 68.49 kg 69.54 kg 80.371 kg 80.371 kg Microbiology Reports for the Last 24 Hours: Microbiology 08/06/22 17:47 Blood - Other Blood Culture - Preliminary Strep dysgalactiae/canis 08/06/22 17:47 Blood - Other Blood Culture - Preliminary Strep dysgalactiae/canis 08/06/22 16:56 Urine,Catheterized Urine Culture - Preliminary Gram Negative Rods Constitutional Constitutional: no acute distress, chronically ill appearing and cooperative *Routine HEENT Exam Head: Present normocephalic and atraumatic Eye: Present EOMI and PERRL ENT: Present mucous membranes moist and oropharynx clear *Routine Neck Exam Neck: Present supple; Absent full ROM Comments: head tilted to the right *Routine Respiratory Exam Respiratory: Present decreased breath sounds and crackles (scant, diffuse ); Absent accessory muscle use or respiratory distress Comments: limited by patient being immobile with contractures and advanced Parkinsons. *Routine Cardiovascular Exam Cardiovascular: Present RRR (tachycardia with regular rhythm ), murmur and tachycardia *Routine Abdominal Exam Abdominal: Present soft, normoactive bowel sounds, tenderness (mild epigastric tenderness ) and distended; Absent rebound or guarding *Routine Extremities Exam Extremities: Present edema (2+ pitting edema to mid shins bilaterally has improved some but is still present ) and pulses intact; Absent full ROM, normal capillary refill (sluggish cap refill) or tenderness Comments: contractures of arms and legs, more so elbows and hands and fingers *Routine Skin Exam Skin: Present warm (diffusely warm to the touch ) Comments: indurated erythema of left side/flank slightly improved today *Routine Neurological Exam Neurological: Present alert, oriented X3, motor deficit, abnormal gait and normal speech; Absent normal reflexes, moving all extremities or normal tone Routine Psychiatric Exam Psychiatric: Present normal affect, normal thought process, cooperative, good insight, good judgment and anxious Assessment and Plan *Assessment and plan (1) Cellulitis: Status: Acute Qualifiers: Site of cellulitis: trunk Site of cellulitis of trunk: abdominal wall Qualified Code(s): L03.311 - Cellulitis of abdominal wall
[2022-08-10 19:58] LABS: Chloride 102 mmol/L (98-107); Potassium 4.3 mmoL/L (3.5-5.1); Sodium 137 mmol/L (136-145)
[2022-08-10 20:01] LABS: Anion Gap 11.3 mEq/L (5-15); Blood Urea Nitrogen 16 mg/dl (7-17); Calcium 7.2 mg/dl (8.4-10.2); Carbon Dioxide 28 mmol/L (22.0-30.0); Creatinine Clearance Estimated 66 mL/min (50-200); Estimated Glomerular Filt Rate 158 ml/min (>60); GFR (African American) 191 ML/MIN (>60); Glucose 132 mg/dl (74-100)
[2022-08-11] VITALS: BP 127/51; PULSE 70; PULSE 77; RESP 18; TEMP 36.8; O2SAT 94
[2022-08-11 04:00] VITALS: BP 101/47; PULSE 80; PULSE 84; RESP 20; TEMP 37.5; O2SAT 91
[2022-08-11 05:00] VITALS: BMI 27.0
--- NOTE | 2022-08-11 05:22 | PC.NURSE ---
pt has rested well this shift, has been turned Q2 hours, heels elevated this shift, SCUDS on at intervals, HR 77-84, remains on room air with O2 sats 91-95%, SBP 101-127, with MAP 65 or greater, no complaints of pain
[2022-08-11 06:08] LABS: Chloride 102 mmol/L (98-107)
[2022-08-11 06:09] LABS: Sodium 136 mmol/L (136-145)
[2022-08-11 06:11] LABS: Alanine Aminotransferase 26 U/L (12-78); Aspartate Amino Transferase 37 U/L (14-36); Blood Urea Nitrogen 16 mg/dl (7-17); Creatinine Clearance Estimated 65 mL/min (50-200); Estimated Glomerular Filt Rate 158 ml/min (>60); GFR (African American) 191 ML/MIN (>60)
[2022-08-11 06:12] LABS: Albumin Level 2.2 g/dl (3.5-5.0); Albumin/Globulin Ratio 0.8 (1.1-1.8); Alkaline Phosphatase 138 U/L (38-126); Calcium 7.1 mg/dl (8.4-10.2); Carbon Dioxide 30 mmol/L (22.0-30.0); Globulin 2.8 g/dL (1.3-3.2); Glucose 91 mg/dl (74-100)
[2022-08-11 06:13] LABS: Basophils # 0.1 K/mm3 (0-0.2); Eosinophils # 0.6 K/mm3 (0.0-0.4); Eosinophils % 7.7 % (0.1-12.0); Hematocrit 30.4 % (37.0-47.0); Hemoglobin 10.3 g/dL (12.2-16.2); Lymphocytes # 2.6 K/mm3 (0.7-4.5); Lymphocytes % 32.4 % (10-50); Mean Corpuscular HGB Conc 33.9 g/dL (31.8-35.4); Mean Corpuscular Hemoglobin 29.4 pg (27.0-31.2); Mean Corpuscular Volume 86.8 fl (81-99); Mean Platelet Volume 8.3 fl (7.4-10.4); Monocytes # 0.3 K/mm3 (0.1-1.0); Monocytes % 4.2 % (1.7-9.3); Neutrophils # 4.5 K/mm3 (1.8-7.8); Neutrophils % 54.7 % (37.0-80.0); Platelet Count 218 K/mm3 (142-424); Red Blood Count 3.51 M/mm3 (4.20-5.40); Red Cell Distribution Width 14.5 % (11.5-17.5); White Blood Count 8.2 K/mm3 (4.8-10.8)
[2022-08-11 06:18] LABS: Bilirubin,Total < 0.1 mg/dl (0.2-1.3)
[2022-08-11 08:00] VITALS: BP 104/47; PULSE 70; PULSE 87; RESP 20; TEMP 36.4; O2SAT 92
[2022-08-11 09:29] LABS: Coronavirus 19, PCR Not Detected (NotDetected); Influenza A, PCR Not Detected (NotDetected); Influenza B, PCR Not Detected (NotDetected)
--- NOTE | 2022-08-11 10:26 | PC.NURSE ---
WENT TO FLOOR TO ACCESS PATIENT FOR PICC PLACEMENT. MD WAS IN THE ROOM DOING ROUNDS. PT IS CONTRACTED AND NOT ABLE TO MOVE ARM OUT AT ALL FOR PLACEMENT. MD IN ROOM AND AGREES WITH THAT. THE PATIENT HAS TWO PERIPHERAL IV'S IN PLACE NOW AND WILL BE GETTING DISCHARGED TODAY WITH THOSE FOR IV ABX FOR NEXT 8 DAYS.
[2022-08-11 12:00] VITALS: BP 110/52; PULSE 82; PULSE 88; RESP 21; TEMP 37.2; O2SAT 93
--- NOTE | 2022-08-11 12:45 | EXP.DC.SUM ---
General Admission date:: 08/06/22 Discharge date: 08/11/22 HPI HPI HPI: This is a chronic comorbid 72-year-old female with history of Parkinson's disease, hypertension, hypothyroidism, chronic indwelling Aburto catheter who presents from her SNF for left abdomen and flank swelling and redness. Patient has a chronic medical history with severe contractures and is bedbound. Staff at the SNF noted erythema of the left abdomen and flank today and sent her to the emergency department. Patient is neurologically intact and denies any significant pain but does report soreness of her skin. She denies any abdominal pain, diarrhea, nausea. She denies fever or any other constitutional symptoms. She does have a chronic indwelling Aburto catheter but denies any changes with this. Emergency department work-up significant for leukocytosis with a white blood cell count of 32, other labs notable for hypokalemia with a potassium of 3.1, normal renal function, elevated ESR and CRP, mildly elevated AST and ALT. She is also noted to have 3+ leukoesterase bacteria and white blood cells in her urine. CT chest abdomen pelvis was obtained to rule out necrotizing fasciitis. CT shows soft tissue swelling but no gaseous abnormalities or localized fluid collections. Due to the above-mentioned findings, she will be admitted to hospitalist service for further evaluation and management. On admission she blood cultures were obtained and she was covered with broad-spectrum antibiotics, namely Vanco and cefepime. Of note on admission she did have a downtrending in her blood pressure to systolic in the 80s. Urine concentrated and did have positive response from a liter bolus to systolic blood pressure in the 90s. I feel at this point she is stable for [facility]. Hospital Course Hospital Course Hospital Course: Patient was admitted the night of 08/06/2022 meeting severe sepsis with septic shock criteria as she was febrile to 101.0, leukocytosis of 40.5, heart rate consistently greater than 90 and multiple sources of infection including cellulitis and UTI. Blood cultures eventually grew Streptococcus dysgalactiae/canis. Patient was initially treated with vancomycin, cefepime, and Flagyl, and as she continued to improve and bacterial S/S resulted this was de-escalated to cefepime alone. Additionally, pressors were initially needed to maintain MAP greater than 65 and this was also able to be weaned. -Each day patient continued to improve in terms of her energy level, shortness of breath, leukocytosis, and blood pressure. Today patient appears to be at baseline and she is ready and stable for discharge back to [facility]. Most recent blood cultures from 08/09 showed no growth to date, so patient requires IV cefepime 2 g twice daily for an additional 8 days to complete a 10-day course. -A PICC line or midline is unable to be placed inpatient as she has significant flexion contractures of her elbows wrists and fingers bilaterally. Patient's IV was changed today and this should be used as long as viable and then replaced so that patient can complete antibiotics until 08/19. -On 08/09 patient was noted to have 2-3+ pitting edema up to the knees bilaterally. She was placed on Lasix 40 mg IV twice daily and this has greatly improved. She will continue Lasix 20 mg p.o. twice daily on discharge. Exam Data for Last 24 hours Vital signs and Labs for Last 24 Hours: Temp Pulse Resp BP Pulse Ox 97.6 F 87 20 104/47 L 92 L 08/11/22 08:00 08/11/22 08:00 08/11/22 08:00 08/11/22 08:00 08/11/22 08:00 Laboratory Results - last 24 hr 08/10/22 19:23: Sodium 137, Potassium 4.3 D, Chloride 102, Carbon Dioxide 28, Anion Gap 11.3, BUN 16, Creatinine 0.40 L, Estimated Creat Clear 66, Estimated GFR 158, Est GFR ( Amer) 191, Glucose 132 H D, Calcium 7.2 L 08/11/22 05:29: WBC 8.2 D, RBC 3.51 L, Hgb 10.3 L, Hct 30.4 L, MCV 86.8, MCH 29.4, MCHC 33.9, RDW 14.5, Plt Count 218,
--- NOTE | 2022-08-11 13:56 | PC.NURSE ---
new iv started in rfa/ac
--- NOTE | 2022-08-11 15:00 | EXP.DC.SUM ---
General Admission date:: 08/06/22 HPI HPI HPI: This is a chronic comorbid 72-year-old female with history of Parkinson's disease, hypertension, hypothyroidism, chronic indwelling Aburto catheter who presents from her SNF for left abdomen and flank swelling and redness. Patient has a chronic medical history with severe contractures and is bedbound. Staff at the SNF noted erythema of the left abdomen and flank today and sent her to the emergency department. Patient is neurologically intact and denies any significant pain but does report soreness of her skin. She denies any abdominal pain, diarrhea, nausea. She denies fever or any other constitutional symptoms. She does have a chronic indwelling Aburto catheter but denies any changes with this. Emergency department work-up significant for leukocytosis with a white blood cell count of 32, other labs notable for hypokalemia with a potassium of 3.1, normal renal function, elevated ESR and CRP, mildly elevated AST and ALT. She is also noted to have 3+ leukoesterase bacteria and white blood cells in her urine. CT chest abdomen pelvis was obtained to rule out necrotizing fasciitis. CT shows soft tissue swelling but no gaseous abnormalities or localized fluid collections. Due to the above-mentioned findings, she will be admitted to hospitalist service for further evaluation and management. On admission she blood cultures were obtained and she was covered with broad-spectrum antibiotics, namely Vanco and cefepime. Of note on admission she did have a downtrending in her blood pressure to systolic in the 80s. Urine concentrated and did have positive response from a liter bolus to systolic blood pressure in the 90s. I feel at this point she is stable for MedSurg. Exam Data for Last 24 hours Vital signs and Labs for Last 24 Hours: Temp Pulse Resp BP Pulse Ox 99 F 82 21 110/52 L 93 L 08/11/22 12:00 08/11/22 12:00 08/11/22 12:00 08/11/22 12:00 08/11/22 12:00 Laboratory Results - last 24 hr 08/10/22 19:23: Sodium 137, Potassium 4.3 D, Chloride 102, Carbon Dioxide 28, Anion Gap 11.3, BUN 16, Creatinine 0.40 L, Estimated Creat Clear 66, Estimated GFR 158, Est GFR ( Amer) 191, Glucose 132 H D, Calcium 7.2 L 08/11/22 05:29: WBC 8.2 D, RBC 3.51 L, Hgb 10.3 L, Hct 30.4 L, MCV 86.8, MCH 29.4, MCHC 33.9, RDW 14.5, Plt Count 218, MPV 8.3, Neut % (Auto) 54.7, Lymph % (Auto) 32.4, [place] % (Auto) 4.2, Eos % (Auto) 7.7, Baso % (Auto) 1.0, Neut # (Auto) 4.5, Lymph # (Auto) 2.6, [place] # (Auto) 0.3, Eos # (Auto) 0.6 H, Baso # (Auto) 0.1 08/11/22 05:29: Sodium 136, Potassium 3.0 L D, Chloride 102, Carbon Dioxide 30, Anion Gap 7.0, BUN 16, Creatinine 0.40 L, Estimated Creat Clear 65, Estimated GFR 158, Est GFR ( Amer) 191, Glucose 91 D, Calcium 7.1 L, Total Bilirubin < 0.1 L, AST 37 H D, ALT 26, Alkaline Phosphatase 138 H, Total Protein 5.0 L, Albumin 2.2 L, Globulin 2.8, Albumin/Globulin Ratio 0.8 L 08/11/22 09:07: SARS-CoV-2 (PCR) Not detected, Influenza A Untype (PCR) Not detected, Influenza Type B (PCR) Not detected I & O for Last 24 hours: Intake & Output 08/08/22 08/09/22 08/10/22 08/11/22 23:59 23:59 23:59 23:59 Intake Total 3597.854 / 3597.854 3897 / 3897 1442 / 1442 220 / 220 Output Total 2150 / 2150 3730 / 3730 5000 / 5000 650 / 650 Balance 1447.854 / 1447.854 167 / 167 -3558 / -3558 -430 / -430 Weight 69.54 kg 80.371 kg 80.371 kg 78.103 kg Microbiology Reports for the Last 24 Hours: Microbiology 08/09/22 09:02 Blood - Other Blood Culture - Preliminary NO GROWTH AFTER 48 HOURS 08/09/22 09:02 Blood - Other Blood Culture - Preliminary NO GROWTH AFTER 48 HOURS Results Data Completed and Pending Labs on day of discharge: Labs from last 24 hours 08/11/22 08/11/22 08/11/22 09:07 05:29 05:29 WBC 8.2 D RBC 3.51 L Hgb 10.3 L Hct 30.4 L MCV 86.8 MCH 29.4 MCHC 33[address]
--- NOTE | 2022-08-11 15:41 | PC.NURSE ---
report called to [facility]
--- NOTE | 2022-08-11 15:46 | PC.NURSE ---
Report called to [facility]; attempted to ems for transport but there was no answer
[2022-08-11 16:00] VITALS: PULSE 80
--- NOTE | 2022-08-11 16:06 | PC.NURSE ---
called ems for transport but no answer, left message
--- NOTE | 2022-08-11 16:21 | PC.NURSE ---
Spoke with EMS who states it will probably be about an hour before they will be here for transport
== END 2022-08-11 18:22 | DRG 872 ==
LOC: ER 18:49 → 2ND 19:33
PROVIDERS: Nurse Practitioner Acute Care; Admitting Provider Emergency Medicine; Emergency Provider Emergency Medicine; PCP Family Medicine; Visit Provider Emergency Medicine
DX: A41.9 Sepsis, unspecified organism (principal); T83.511A Infection and inflammatory reaction due to indwelling urethral catheter, initial encounter; L03.311 Cellulitis of abdominal wall; N30.00 Acute cystitis without hematuria; R65.20 Severe sepsis without septic shock; E87.6 Hypokalemia; K59.01 Slow transit constipation; I10 Essential (primary) hypertension; E03.9 Hypothyroidism, unspecified; Z74.01 Bed confinement status; G20 Parkinson's disease; Y84.6 Urinary catheterization as the cause of abnormal reaction of the patient, or of later complication, without mention of misadventure at the time of the procedure
CPT/HCPCS: 36415; 71250; 74176; 80048; 80053; 80076; 80202; 81001; 82962; 83605; 84145; 85007; 85025; 85651; 86140; 87040; 87077; 87086; 87088; 87186; 93005; 99285; C9803; J3370; U0003; U0005

== ENCOUNTER 2022-09-25 06:38 | Emergency (ER) | payer MEDICARE, MEDICAID, SELFPAY ==
[2022-09-25 06:38] VITALS: BP 110/66; PULSE 86; RESP 18; TEMP 37.1; O2SAT 96; BMI 27.1
[2022-09-25 06:40] VITALS: BMI 27.1
[2022-09-25 06:50] LABS: Basophils # 0.1 K/mm3 (0-0.2); Basophils % 1.1 % (0.1-2.0); Eosinophils # 0.8 K/mm3 (0.0-0.4); Eosinophils % 6.7 % (0.1-12.0); Hematocrit 38.4 % (37.0-47.0); Hemoglobin 12.3 g/dL (12.2-16.2); Lymphocytes % 35.5 % (10-50); Mean Corpuscular Hemoglobin 29.3 pg (27.0-31.2); Mean Corpuscular Volume 91.5 fl (81-99); Mean Platelet Volume 8.5 fl (7.4-10.4); Monocytes # 0.6 K/mm3 (0.1-1.0); Monocytes % 4.9 % (1.7-9.3); Neutrophils # 5.8 K/mm3 (1.8-7.8); Neutrophils % 51.7 % (37.0-80.0); Platelet Count 402 K/mm3 (142-424); Red Blood Count 4.19 M/mm3 (4.20-5.40); Red Cell Distribution Width 14.6 % (11.5-17.5); White Blood Count 11.2 K/mm3 (4.8-10.8)
[2022-09-25 06:54] LABS: Chloride 101 mmol/L (98-107); Potassium 3.5 mmoL/L (3.5-5.1); Sodium 136 mmol/L (136-145)
[2022-09-25 06:56] LABS: Blood Urea Nitrogen 21 mg/dl (7-17); Creatinine Clearance Estimated 63 mL/min (50-200); Estimated Glomerular Filt Rate 99 ml/min (>60); GFR (African American) 120 ML/MIN (>60)
[2022-09-25 06:57] LABS: Alanine Aminotransferase 15 U/L (12-78); Albumin Level 2.9 g/dl (3.5-5.0); Albumin/Globulin Ratio 0.9 (1.1-1.8); Alkaline Phosphatase 134 U/L (38-126); Anion Gap 6.5 mEq/L (5-15); Aspartate Amino Transferase 23 U/L (14-36); Calcium 8.4 mg/dl (8.4-10.2); Carbon Dioxide 32 mmol/L (22.0-30.0); Globulin 3.3 g/dL (1.3-3.2); Glucose 95 mg/dl (74-100); Total Protein,Serum 6.2 g/dl (6.3-8.2)
[2022-09-25 06:58] LABS: Lactic Acid 0.6 mmol/L (0.7-2.1)
[2022-09-25 06:59] LABS: Bilirubin,Total < 0.1 mg/dl (0.2-1.3)
[2022-09-25 07:03] LABS: C-Reactive Protein 11.8 mg/L (0-4)
[2022-09-25 07:26] LABS: Erythrocyte Sedimentation Rate 70 mm/hr (0-30)
--- NOTE | 2022-09-25 07:27 | HMH.EDSKAF ---
Discharge Plan Disposition Patient Disposition: er [facility] Prescriptions Prescriptions: New clindamycin HCl 300 mg capsule 300 mg PO TID Qty: 30 0RF No Action aspirin [Adult Low Dose Aspirin] 81 mg tablet,delayed release (DR/EC) 81 mg PO DAILY atorvastatin 10 mg tablet 10 mg PO HS diazepam [Valium] 5 mg tablet 2.5 mg PO BID ascorbic acid (vitamin C) 500 MG tablet 500 mg PO DAILY oxybutynin chloride 5 MG tablet extended release 24hr 5 mg PO DAILY pantoprazole 20 MG tablet,delayed release (DR/EC) 20 mg PO DAILY levothyroxine 200 MCG tablet 200 mcg PO DAILY sennosides [senna] 8.6 mg Tablet 8.6 mg PO HS levothyroxine [Synthroid] 50 mcg Tablet 50 mcg PO DAILY mirtazapine [Remeron] 15 mg Tablet 7.5 mg PO HS Acidophilus Capsule 1 cap PO DAILY Advil Dual Action 125-250 mg Tablet 1 tab PO HS carvedilol 3.125 MG tablet 3.125 mg PO BID potassium chloride 20 mEq tablet extended release 20 meq PO DAILY Qty: 30 0RF furosemide 20 mg tablet 20 mg PO BID Qty: 60 0RF Clinical Impressions Clinical Impression: Cellulitis Instructions Patient Instructions: Cellulitis Discharge ED Provider: Yao Vieyra Skin/Abscess/FB HPI General Chief complaint: Skin/Abscess/Foreign Body Stated complaint: Facial swelling, redness, L ear pain, L eye d/c Time Seen by Provider: 09/25/22 07:27 Mode of Arrival: EMS Source of Information: Patient, EMS and Medical Record Limitations: Physical Limitations Description of Symptoms (Recalled from ER Triage Doc. by RN): Pt c/o R ear pain and R eye swelling and discharge. Per long-term, they thought the R side of pt's face was swollen and red and might have an abcess on the ear . They are aware of a coccyx wound and do daily dsg changes. BLE are red and warm. Pt denies any pain to BLE. Large amount of wax removed from bilat ears. History of Present Illness HPI narrative: pt [facility] from [facility] for eval of swelling to rt facial and ear area -pt is poor historian and reviewed [facility] report and called [facility] - has chronic lower leg swelling complaint: other Onset (ago): day(s) Tetanus up to date: unsure Location: face Severity: mild Quality: pruritic Associated symptoms: itching Related Data Home Medications Medication Instructions Recorded Confirmed aspirin 81 mg tablet,delayed 81 mg PO DAILY heart health 09/03/19 08/06/22 release (Adult Low Dose Aspirin) atorvastatin 10 mg tablet 10 mg PO HS Cholesterol 09/03/19 08/06/22 diazepam 5 mg tablet (Valium) 2.5 mg PO BID Tremors 09/03/19 08/06/22 ascorbic acid (vitamin C) 500 mg 500 mg PO DAILY wound 08/01/21 08/06/22 tablet levothyroxine 200 mcg tablet 200 mcg PO DAILY hypothyroidism 08/01/21 08/06/22 oxybutynin chloride 5 mg 5 mg PO DAILY urinary retention 08/01/21 08/06/22 tablet,extended release 24 hr pantoprazole 20 mg tablet,delayed 20 mg PO DAILY acid reflux 08/01/21 08/06/22 release Lactobacillus acidophilus 1 cap PO DAILY GI health 08/06/22 08/06/22 (Acidophilus capsule) carvedilol 3.125 mg tablet 3.125 mg PO BID Hypertension 08/06/22 08/06/22 ibuprofen 125 mg-acetaminophen 250 1 tab PO HS Pain 08/06/22 08/06/22 mg tablet (Advil Dual Action) levothyroxine 50 mcg tablet 50 mcg PO DAILY hypothyroidism 08/06/22 08/06/22 (Synthroid) mirtazapine 15 mg tablet (Remeron) 7.5 mg PO HS appetite stimulant 08/06/22 08/06/22 sennosides 8.6 mg tablet (senna) 8.6 mg PO HS constipation 08/06/22 08/06/22 Previous Rx's Medication Instructions Recorded furosemide 20 mg tablet 20 mg PO BID #60 tabs 08/11/22 potassium chloride 20 mEq 20 meq PO DAILY #30 tabs 08/11/22 tablet,extended release clindamycin HCl 300 mg capsule 300 mg PO TID #30 caps 09/25/22 Allergies Allergy/AdvReac Type Severity Reaction Status Date / Time Penicillins Allergy Verified 08/06/22 18:37 Sulfa (Sulfonamide Allergy Verified 08/06/22 18:37 Antibiotics)
--- NOTE | 2022-09-25 09:01 | PC.NURSE ---
REPORT GIVEN TO SARY AT [facility]
[2022-09-25 09:30] VITALS: BP 123/80; PULSE 86; RESP 18; TEMP 36.7; O2SAT 95
== END 2022-09-25 09:35 ==
PROVIDERS: Emergency Provider Emergency Medicine; PCP Family Medicine
DX: L03.119 Cellulitis of unspecified part of limb (principal); Z79.82 Long term (current) use of aspirin; Z79.899 Other long term (current) drug therapy; Z88.0 Allergy status to penicillin; Z88.2 Allergy status to sulfonamides; Z88.8 Allergy status to other drugs, medicaments and biological substances; I10 Essential (primary) hypertension; E03.9 Hypothyroidism, unspecified; G20 Parkinson's disease; Z87.39 Personal history of other diseases of the musculoskeletal system and connective tissue; K21.9 Gastro-esophageal reflux disease without esophagitis; I25.2 Old myocardial infarction
CPT/HCPCS: 80053; 83605; 85025; 85651; 86140; 87040; 96365; 99284; J0696

== ENCOUNTER 2022-12-14 13:50 | Emergency (ER) | payer MEDICARE, MEDICAID, SELFPAY ==
[2022-12-14] VITALS (15 sets, daily range): BP systolic 78–131; BP diastolic 18–92; PULSE 68–96; RESP 16–20; TEMP 36.6–36.8; O2SAT 93–98; BMI 23.1; BMI 26.3
--- NOTE | 2022-12-14 14:11 | CT_ITS ---
PROCEDURE INFORMATION: Exam: CT Abdomen And Pelvis With Contrast Exam date and time: 12/14/2022 3:05 PM Age: 72 years old Clinical indication: Bloating; Additional info: Abd distention, UTI, sacral wound TECHNIQUE: Imaging protocol: Computed tomography of the abdomen and pelvis with contrast. Radiation optimization: All CT scans at this facility use at least one of these dose optimization techniques: automated exposure control; mA and/or kV adjustment per patient size (includes targeted exams where dose is matched to clinical indication); or iterative reconstruction. Contrast material: ISOVUE; Contrast volume: 75 ml; Contrast route: IV; Other protocol: This patient has received 2 known CTs and 0 known cardiac nuclear medicine studies in the 12 months prior to the current study. COMPARISON: CT ABDOMEN PELVIS WO CON 08/06/2022 5:09 PM FINDINGS: Lungs: No acute findings in the visualized lower lungs. Minimal interstitial scarring or subsegmental atelectasis; no consolidation. Elevated right diaphragm with right lower pulmonary volume loss. Liver: The liver is normal size. Calcified hepatic granuloma. No suspicious mass. Gallbladder and bile ducts: Contracted gallbladder is not well evaluated, gallstones were better seen on the previous CT. No biliary dilatation. Pancreas: Atrophic pancreas. No ductal dilatation. No mass. Spleen: No splenomegaly. Calcified splenic granulomas. Adrenal glands: The adrenal glands are normal. Kidneys and ureters: Multiple tiny nonobstructing right renal calculi. These appear less numerous compared with the prior scan from 08/06/2022, suggesting some interval passage of stones. No hydronephrosis, hydroureter, or definite obstructing ureteral stones are seen on today's exam, but portions of the right ureter are obscured by streak artifacts from the patient's right hip prosthesis. No stones or obstruction detected on the left. No mass. Stomach and bowel: The rectum is severely distended with fecal material and bowel gas, worsened compared with the prior exam, today distended to almost 14 cm transverse diameter series 3, image 87. The colon is dilated with gas to the level of the hepatic flexure, and there is dense fecal material in the right colon. This could be due to chronic [place] syndrome as previously reported, though progressive rectal fecal impaction with obstipation and mechanical obstruction are also a possibility, correlate with fecal output. No colon wall thickening or pneumatosis intestinalis seen. No significant small intestinal dilatation or obstruction. Stomach is unremarkable. Appendix: No findings of appendicitis. Intraperitoneal space: There is no free intraperitoneal air. There is no significant free intraperitoneal fluid. Vasculature: There is no aortic aneurysm.The vasculature demonstrates scattered mild atherosclerotic calcification. No portal venous gas. Lymph nodes: No significantly enlarged lymph nodes by short axis criteria. Urinary bladder: The urinary bladder is contracted around a Aburto catheter and not well evaluated. No calcified stones seen. Reproductive: Unremarkable as visualized. Bones/joints: Osteopenia. Chronic spinal degenerative changes and mild compression deformities; no acute fracture compared with 08/06/2022. Chronic thinning and deformity of the distal sacrum and coccyx unchanged in the interval. No CT findings of sacral osteomyelitis. Chronic total right hip prosthesis which remains intact and normally aligned with no CT findings of loosening or infection. Soft tissues: Shallow soft tissue ulceration overlying the sacrum. No underlying loculated abscess collection or soft tissu
[2022-12-14 14:14] LABS: Basophils # 0.2 K/mm3 (0-0.2); Basophils % 1.6 % (0.1-2.0); Eosinophils # 0.9 K/mm3 (0.0-0.4); Eosinophils % 7.4 % (0.1-12.0); Hematocrit 41.2 % (37.0-47.0); Hemoglobin 13.9 g/dL (12.2-16.2); Lymphocytes # 4.2 K/mm3 (0.7-4.5); Lymphocytes % 33.5 % (10-50); Mean Corpuscular HGB Conc 33.8 g/dL (31.8-35.4); Mean Corpuscular Hemoglobin 28.7 pg (27.0-31.2); Mean Corpuscular Volume 84.9 fl (81-99); Mean Platelet Volume 8.1 fl (7.4-10.4); Monocytes # 0.6 K/mm3 (0.1-1.0); Monocytes % 4.4 % (1.7-9.3); Neutrophils # 6.7 K/mm3 (1.8-7.8); Neutrophils % 53.1 % (37.0-80.0); Platelet Count 426 K/mm3 (142-424); Red Blood Count 4.86 M/mm3 (4.20-5.40); Red Cell Distribution Width 15.1 % (11.5-17.5); White Blood Count 12.6 K/mm3 (4.8-10.8)
[2022-12-14 14:24] LABS: Alanine Aminotransferase 18 U/L (12-78); Albumin Level 3.3 g/dl (3.5-5.0); Albumin/Globulin Ratio 0.9 (1.1-1.8); Alkaline Phosphatase 142 U/L (38-126); Anion Gap 6.5 mEq/L (5-15); Aspartate Amino Transferase 31 U/L (14-36); Bilirubin,Total 0.4 mg/dl (0.2-1.3); Blood Urea Nitrogen 28 mg/dl (7-17); Calcium 8.6 mg/dl (8.4-10.2); Carbon Dioxide 30 mmol/L (22.0-30.0); Chloride 106 mmol/L (98-107); Creatinine Clearance Estimated 63 mL/min (50-200); Estimated Glomerular Filt Rate 122 ml/min (>60); GFR (African American) 148 ML/MIN (>60); Globulin 3.8 g/dL (1.3-3.2); Glucose 113 mg/dl (74-100); Potassium 3.5 mmoL/L (3.5-5.1); Sodium 139 mmol/L (136-145); Total Protein,Serum 7.1 g/dl (6.3-8.2)
[2022-12-14 14:38] LABS: Troponin I < 0.01 ng/ml (0.00-0.034)
[2022-12-14 14:42] LABS: Microscopic, Urine URINE MICROSCOPIC (MICROSCOPIC)
[2022-12-14 14:45] LABS: Appearance,Urine CLEAR (Clear); Blood, Urine 2+ (Negative); Color,Urine YELLOW (Yellow); Glucose,Urine (UA) Negative (Negative); Ketones,Urine TRACE (Negative); Leukocyte Esterase,Urine 2+ (Negative); Nitrate,Urine POSITIVE (Negative); PH,Urine 5.5 (5.0-8.5); Protein,Urine 2+ (Negative); Specific Gravity, Urine >= 1.030 (1.005-1.030); Urobilinogen,Urine 0.2 EU/dl (0.2)
[2022-12-14 14:48] LABS: Bilirubin,Urine 1+ (Negative)
[2022-12-14 14:52] LABS: Bacteria,Urine 2+ /lpf; Calcium Oxalate Crystals,Urine 1+ /lpf; Squamous Epithelial Cell,Urine Occasional #/hpf (0-5); WBC,Urine TNTC #/hpf (0-3); Yeast,Urine 3+ /lpf
[2022-12-14 15:04] LABS: Influenza A, PCR Not Detected (NotDetected); Influenza B, PCR Not Detected (NotDetected)
[2022-12-14 15:07] LABS: Lactic Acid 0.9 mmol/L (0.7-2.1)
[2022-12-14 15:44] LABS: Coronavirus 19, PCR Detected (NotDetected)
--- NOTE | 2022-12-14 16:59 | PC.NURSE ---
PT ASKED TO BE SETTED UP A FEW SO I ADJUSTED BED NO OTHER COMPLAINTS AT THIS TIME
--- NOTE | 2022-12-14 18:09 | PC.NURSE ---
CHECKED ON PT STATED SHE WAS OKAY AT THIS TIME
--- NOTE | 2022-12-14 18:40 | HMH.EDGENADL ---
Discharge Plan Disposition Patient Disposition: Home, Self-Care Condition: Fair Chief Complaint: Weakness Prescriptions Prescriptions: No Action aspirin [Adult Low Dose Aspirin] 81 mg tablet,delayed release (DR/EC) 81 mg PO DAILY atorvastatin 10 mg tablet 10 mg PO HS diazepam [Valium] 5 mg tablet 2.5 mg PO BID ascorbic acid (vitamin C) 500 MG tablet 500 mg PO DAILY oxybutynin chloride 5 MG tablet extended release 24hr 5 mg PO DAILY pantoprazole 20 MG tablet,delayed release (DR/EC) 20 mg PO DAILY levothyroxine 200 MCG tablet 200 mcg PO DAILY sennosides [senna] 8.6 mg Tablet 8.6 mg PO HS levothyroxine [Synthroid] 50 mcg Tablet 50 mcg PO DAILY mirtazapine [Remeron] 15 mg Tablet 7.5 mg PO HS Acidophilus Capsule 1 cap PO DAILY Advil Dual Action 125-250 mg Tablet 1 tab PO HS carvedilol 3.125 MG tablet 3.125 mg PO BID clindamycin HCl 300 mg capsule 300 mg PO TID furosemide 20 mg tablet 20 mg PO BID potassium chloride 20 mEq tablet extended release 20 meq PO DAILY Clinical Impressions Clinical Impression: COVID-19, Chronic UTI, Carlita cystitis, [place] syndrome Instructions Patient Instructions: DI for Acute Abdominal Pain Print Language Print Language: Spanish Discharge ED Provider: Levy Kidd Adult HPI General Chief complaint: Weakness Stated complaint: No BM x2 days Time Seen by Provider: 12/14/22 18:47 Mode of Arrival: EMS Limitations: Physical Limitations Description of Symptoms (Recalled from ER Triage Doc. by RN): EMS reports facility requested transport for pt currently being treated for UTI, [facility] 12/12/22, sacral wound and abd distention; pt is total care dependent, F/C in place, contractures, and very poor hygiene/neglect/currently passing stool but A&O History of Present Illness HPI narrative: Patient presents to the emergency department abdominal distention and pain. Patient has a known sacral wound. Currently being treated for urinary tract infection. Coming from local nursing care facility. No mention of fever, chills, vomiting or diarrhea. Patient complains of abdominal pain as tenderness Related Data Home Medications Medication Instructions Recorded Confirmed aspirin 81 mg tablet,delayed 81 mg PO DAILY heart health 09/03/19 12/14/22 release (Adult Low Dose Aspirin) atorvastatin 10 mg tablet 10 mg PO HS Cholesterol 09/03/19 12/14/22 diazepam 5 mg tablet (Valium) 2.5 mg PO BID Tremors 09/03/19 12/14/22 ascorbic acid (vitamin C) 500 mg 500 mg PO DAILY wound 08/01/21 12/14/22 tablet levothyroxine 200 mcg tablet 200 mcg PO DAILY hypothyroidism 08/01/21 12/14/22 oxybutynin chloride 5 mg 5 mg PO DAILY urinary retention 08/01/21 12/14/22 tablet,extended release 24 hr pantoprazole 20 mg tablet,delayed 20 mg PO DAILY acid reflux 08/01/21 12/14/22 release Lactobacillus acidophilus 1 cap PO DAILY GI health 08/06/22 12/14/22 (Acidophilus capsule) carvedilol 3.125 mg tablet 3.125 mg PO BID Hypertension 08/06/22 12/14/22 ibuprofen 125 mg-acetaminophen 250 1 tab PO HS Pain 08/06/22 12/14/22 mg tablet (Advil Dual Action) levothyroxine 50 mcg tablet 50 mcg PO DAILY hypothyroidism 08/06/22 12/14/22 (Synthroid) mirtazapine 15 mg tablet (Remeron) 7.5 mg PO HS appetite stimulant 08/06/22 12/14/22 sennosides 8.6 mg tablet (senna) 8.6 mg PO HS constipation 08/06/22 12/14/22 clindamycin HCl 300 mg capsule 300 mg PO TID UTI 12/14/22 12/14/22 furosemide 20 mg tablet 20 mg PO BID Edema 12/14/22 12/14/22 potassium chloride 20 mEq 20 meq PO DAILY Supplement 12/14/22 12/14/22 tablet,extended release Allergies Allergy/AdvReac Type Severity Reaction Status Date / Time Penicillins Allergy Verified 08/06/22 18:37 Sulfa (Sulfonamide Allergy Verified 08/06/22 18:37 Antibiotics) sulfamethoxazole Allergy Verified 08/06/22 18:37 [From ] trimethoprim [Fro
--- NOTE | 2022-12-14 20:10 | PC.NURSE ---
EMS notified of transport
--- NOTE | 2022-12-14 20:24 | PC.NURSE ---
[facility] has been called; [facility] precertification request faxed
--- NOTE | 2022-12-14 21:05 | PC.NURSE ---
ems at , notified [facility] staff pt is covid positive.
== END 2022-12-14 21:06 | disposition home or self-care (01) ==
PROVIDERS: Emergency Provider Emergency Medicine
DX: U07.1 COVID-19 (principal); K59.00 Constipation, unspecified; B37.41 Candidal cystitis and urethritis; K59.81 Ogilvie syndrome; I10 Essential (primary) hypertension; E03.9 Hypothyroidism, unspecified; I25.2 Old myocardial infarction
CPT/HCPCS: 74177; 80053; 81001; 83605; 84484; 85025; 87040; 87086; 87088; 87186; 96374; 96375; 99285; C9803; J0696; Q9967; U0003; U0005

== ENCOUNTER 2023-02-18 19:21 | Emergency (ER) | payer MEDICARE, MEDICAID, SELFPAY ==
[2023-02-18 19:25] VITALS: BP 123/71; PULSE 98; RESP 16; TEMP 36.9; O2SAT 95; BMI 26.7
--- NOTE | 2023-02-18 19:37 | XR_ITS ---
PROCEDURE INFORMATION: Exam: XR Chest Exam date and time: 02/18/2023 7:57 PM Age: 72 years old Clinical indication: Cough TECHNIQUE: Imaging protocol: Radiologic exam of the chest. Views: 1 view. COMPARISON: CT CHEST WO CON 08/06/2022 5:09 PM FINDINGS: Lungs: Right upper lung is largely obscured by the patient's head. Left lung appears clear. Pleural spaces: Unremarkable. No pleural effusion. No pneumothorax. Heart/Mediastinum: Unremarkable. No cardiomegaly. Bones/joints: Moderate degenerative changes of the spine are noted. Gastrointestinal tract: Prominent gaseous distention of the colon again noted throughout the abdomen. Largest distended colon loop measures approximally 12 cm in diameter. IMPRESSION: 1. No definite acute abnormality in the chest 2. Severe gaseous distention of the colon again noted in the upper abdomen, similar to multiple prior studies
[2023-02-18 19:48] LABS: Chloride 102 mmol/L (98-107); Sodium 136 mmol/L (136-145)
[2023-02-18 19:49] LABS: Basophils # 0.1 K/mm3 (0-0.2); Basophils % 0.8 % (0.1-2.0); Eosinophils # 0.1 K/mm3 (0.0-0.4); Hematocrit 38.4 % (37.0-47.0); Hemoglobin 12.7 g/dL (12.2-16.2); Lymphocytes # 2.7 K/mm3 (0.7-4.5); Lymphocytes % 21.1 % (10-50); Mean Corpuscular HGB Conc 33.2 g/dL (31.8-35.4); Mean Corpuscular Hemoglobin 28.4 pg (27.0-31.2); Mean Corpuscular Volume 85.4 fl (81-99); Mean Platelet Volume 8.6 fl (7.4-10.4); Monocytes # 0.4 K/mm3 (0.1-1.0); Monocytes % 2.9 % (1.7-9.3); Neutrophils # 9.5 K/mm3 (1.8-7.8); Neutrophils % 74.2 % (37.0-80.0); Platelet Count 366 K/mm3 (142-424); Potassium 3.9 mmoL/L (3.5-5.1); Red Blood Count 4.49 M/mm3 (4.20-5.40); Red Cell Distribution Width 15.2 % (11.5-17.5); White Blood Count 12.7 K/mm3 (4.8-10.8)
[2023-02-18 19:51] LABS: Alanine Aminotransferase 20 U/L (12-78); Alkaline Phosphatase 136 U/L (38-126); Aspartate Amino Transferase 28 U/L (14-36); Bilirubin,Total 0.3 mg/dl (0.2-1.3); Blood Urea Nitrogen 23 mg/dl (7-17); Creatinine Clearance Estimated 64 mL/min (50-200); Estimated Glomerular Filt Rate 99 ml/min (>60); GFR (African American) 120 ML/MIN (>60)
[2023-02-18 19:52] LABS: Albumin Level 3.1 g/dl (3.5-5.0); Albumin/Globulin Ratio 0.9 (1.1-1.8); Anion Gap 6.9 mEq/L (5-15); Calcium 8.4 mg/dl (8.4-10.2); Carbon Dioxide 31 mmol/L (22.0-30.0); Globulin 3.5 g/dL (1.3-3.2); Glucose 139 mg/dl (74-100); Total Protein,Serum 6.6 g/dl (6.3-8.2)
[2023-02-18 20:17] LABS: Microscopic, Urine URINE MICROSCOPIC (MICROSCOPIC)
--- NOTE | 2023-02-18 20:20 | PC.NURSE ---
This documenting RN and Melissa Miller observed patient that had large bowel movement. When we went to clean her we noticed some pressure injuries to BLE, purulent smell, and dry/flaky skin. We completed a total bed bath. There were pressure injuries noted to the following areas. Stage I to posterior lower extremities, Stage 3 to her right shoulder, and Stage 3 to her sacrum. These areas were cleansed and dressed. Patient's santacruz catheter had large amount of purulent mucous stranding and ricardo in color. The end of the tubing was clogged with this purulent mucous, so it was decided we would trade santacruz out for a new one. Replaced with a 16 fr santacruz- see insertion charting for details.
[2023-02-18 20:24] LABS: Appearance,Urine CLEAR (Clear); Bilirubin,Urine Negative (Negative); Blood, Urine 3+ (Negative); Color,Urine YELLOW (Yellow); Glucose,Urine (UA) Negative (Negative); Ketones,Urine Negative (Negative); Leukocyte Esterase,Urine 2+ (Negative); Nitrate,Urine POSITIVE (Negative); PH,Urine 6.5 (5.0-8.5); Protein,Urine 2+ (Negative); Specific Gravity, Urine 1.025 (1.005-1.030); Urobilinogen,Urine 0.2 EU/dl (0.2)
--- NOTE | 2023-02-18 20:35 | HMH.EDSOB ---
Discharge Plan Disposition Patient Disposition: Home, Self-Care Prescriptions Prescriptions: New levofloxacin 500 mg tablet 500 mg PO DAILY 7 Days Qty: 7 0RF No Action prednisone 10 mg tablet 10 mg PO BID atorvastatin 10 mg tablet 10 mg PO HS carvedilol 3.125 mg tablet 3.125 mg PO BID pantoprazole 20 mg tablet,delayed release (DR/EC) 20 mg PO DAILY potassium chloride 20 mEq tablet,ER particles/crystals 20 meq PO DAILY levothyroxine 50 mcg tablet 50 mcg PO AM hyoscyamine sulfate 0.125 mg tablet 0.125 mg PO QIDP PRN (Reason: GI upset) oxybutynin chloride 5 mg tablet extended release 24hr 5 mg PO DAILY levothyroxine 200 mcg tablet 200 mcg PO AM furosemide 20 mg tablet 20 mg PO DAILY diazepam 5 mg tablet 5 mg PO HS Referrals Follow up/Referrals: Provider,Referral, MD [Primary Care Provider] - See instructions Clinical Impressions Clinical Impression: Acute UTI Discharge ED Provider: Juan J Kincaid Resp/SOB HPI General Chief Complaint: Shortness of Breath/Dyspnea Stated Complaint: possible aspiration Time Seen by Provider: 02/18/23 20:31 Mode of Arrival: EMS Source of Information: Patient and EMS Limitations: No Limitations Description of Symptoms (Recalled from ER Triage Doc. by RN): Pt states that she has had a cough for the prior month. States that this morning she was having cereal and aspirated and her cough has been worse since. Per [facility], patient had a swallow study this evening and her heartrate elevated to 160's-180's and her oxygen saturation was 80% so they called EMS. History of Present Illness 72-year-old white female presents with shortness of breath pain with deep inspiration which seems to be getting worse with time. She has had this symptom for about a month. And has had several x-rays in the interim. She lists penicillins sulfa as allergy she has a history of severe flexion contractures in all of her joints constipation Related Data Home Medications Medication Instructions Recorded Confirmed atorvastatin 10 mg tablet 10 mg PO HS Cholesterol 02/18/23 02/18/23 carvedilol 3.125 mg tablet 3.125 mg PO BID Heart rhythm 02/18/23 02/18/23 diazepam 5 mg tablet 5 mg PO HS Anxiety 02/18/23 02/18/23 furosemide 20 mg tablet 20 mg PO DAILY Edema 02/18/23 02/18/23 hyoscyamine sulfate 0.125 mg tablet 0.125 mg PO QIDP PRN GI upset 02/18/23 02/18/23 levothyroxine 200 mcg tablet 200 mcg PO AM Thyroid 02/18/23 02/18/23 levothyroxine 50 mcg tablet 50 mcg PO AM Thyroid 02/18/23 02/18/23 oxybutynin chloride 5 mg 5 mg PO DAILY Urinary 02/18/23 02/18/23 tablet,extended release 24 hr pantoprazole 20 mg tablet,delayed 20 mg PO DAILY Acid reflux 02/18/23 02/18/23 release potassium chloride 20 mEq 20 meq PO DAILY Supplement 02/18/23 02/18/23 tablet,extended release(part/cryst) prednisone 10 mg tablet 10 mg PO BID Unknown 02/18/23 02/18/23 Previous Rx's Medication Instructions Recorded levofloxacin 500 mg tablet 500 mg PO DAILY 7 days #7 tabs 02/18/23 Allergies Allergy/AdvReac Type Severity Reaction Status Date / Time Penicillins Allergy Verified 08/06/22 18:37 Sulfa (Sulfonamide Allergy Verified 08/06/22 18:37 Antibiotics) sulfamethoxazole Allergy Verified 08/06/22 18:37 [From Septra] trimethoprim [From Septra] Allergy Verified 08/06/22 18:37 [facility] Disclaimer: The information contained in this section may have been updated after the patient was seen, as this information can be updated by other users. Medical History Cannot walk Hip fracture requiring operative repair Hypertension Hypothyroid Non-ST elevated myocardial infarction Parkinson disease Unsteady gait UTI (urinary tract infection) Social History Smoking Status: Never smoker alcohol intake: never current
--- NOTE | 2023-02-18 20:38 | XR_ITS ---
PROCEDURE INFORMATION: Exam: XR Chest Exam date and time: 02/18/2023 9:04 PM Age: 72 years old Clinical indication: Dyspnea TECHNIQUE: Imaging protocol: Radiologic exam of the chest. Views: 1 view. COMPARISON: CR XR CHEST PORTABLE 02/18/2023 7:57 PM FINDINGS: Lungs: Visualized portions of the lungs appear clear. Lung apices are partially obscured by the patient's head. Pleural spaces: Unremarkable. No pleural effusion. No pneumothorax. Heart/Mediastinum: Unremarkable. No cardiomegaly. Bones/joints: Unremarkable. Gastrointestinal tract: Prominent gaseous distention of the colon again noted in the upper abdomen. IMPRESSION: No acute change from the earlier study. No definite pulmonary infiltrate.
[2023-02-18 21:05] LABS: Lactic Acid 0.6 mmol/L (0.7-2.1)
[2023-02-18 21:17] LABS: Bacteria,Urine 3+ /lpf; Squamous Epithelial Cell,Urine Occasional #/hpf (0-5); Triple Phosphate Crystal,Urine 1+ /lpf
[2023-02-18 21:18] LABS: NT Pro Brain Natriuretic Pep. 499 pg/mL (0-125)
[2023-02-18 21:23] LABS: Procalcitonin 0.169 ng/mL (0.0-2.0)
[2023-02-18 21:25] LABS: Troponin I < 0.01 ng/ml (0.00-0.034)
--- NOTE | 2023-02-18 22:20 | PC.NURSE ---
Insurance pre-authorization faxed for ambulance transport
--- NOTE | 2023-02-18 22:21 | PC.NURSE ---
EMS notified of transport
[2023-02-18 22:49] VITALS: BP 108/64; PULSE 74; RESP 16; TEMP 36.6; O2SAT 95
== END 2023-02-18 22:49 | disposition home or self-care (01) ==
PROVIDERS: Emergency Provider Emergency Medicine
DX: R07.1 Chest pain on breathing (principal); R06.02 Shortness of breath; N39.0 Urinary tract infection, site not specified
CPT/HCPCS: 51702; 71045; 80053; 81001; 83605; 83880; 84145; 84484; 85025; 87040; 87086; 87088; 87186; 99284; 99285

== ENCOUNTER 2023-07-17 09:44 | Emergency (ER) | payer MEDICARE, MEDICAID, SELFPAY ==
[2023-07-17 09:44] VITALS: BP 141/100; PULSE 88; RESP 19; TEMP 36.6; O2SAT 96; BMI 22.6
--- NOTE | 2023-07-17 09:58 | CA_ITS ---
FINAL REPORT TECHNIQUE: Graded compression, spectral analysis and ultrasound images of the venous system of the right upper extremity were obtained. CLINICAL HISTORY: redness of right arm, Patient in chronic contracture with chin on right chest and right arm drwn to stomach. COMPARISON: None FINDINGS: The jugular and subclavian veins were not imaged secondary to extremely limited exam due to body habitus. The remainder of the venous system is patent. IMPRESSION: No evidence of thrombosis of the visualized venous system of the right upper extremity. Reviewed, Interpreted and Dictated by Eric Uriostegui MD Transcribed by Sharon Haq Authenticated and [facility]
--- NOTE | 2023-07-17 09:59 | [facility]H.EDGENADL ---
Discharge Plan Disposition Patient Disposition: Home, Self-Care Prescriptions Prescriptions: No Action prednisone 10 mg tablet 10 mg PO BID atorvastatin 10 mg tablet 10 mg PO HS carvedilol 3.125 mg tablet 3.125 mg PO BID pantoprazole 20 mg tablet,delayed release (DR/EC) 20 mg PO DAILY potassium chloride 20 mEq tablet,ER particles/crystals 20 meq PO DAILY levothyroxine 50 mcg tablet 50 mcg PO AM hyoscyamine sulfate 0.125 mg tablet 0.125 mg PO QIDP PRN (Reason: GI upset) oxybutynin chloride 5 mg tablet extended release 24hr 5 mg PO DAILY levothyroxine 200 mcg tablet 200 mcg PO AM furosemide 20 mg tablet 20 mg PO DAILY diazepam 5 mg tablet 5 mg PO HS levofloxacin 500 mg tablet 500 mg PO DAILY 7 Days Qty: 7 0RF Referrals Follow up/Referrals: Yao Buenrostro [Primary Care Provider] - See instructions Activity Restrictions/Add. Instructions Additional Instructions/Restrictions: Your serial blood pressures here were normal according to your family and to you you are at your symptomatic baseline there is no evidence of any clot in your upper extremity this is consistent with chronic venous insufficiency of the right arm not consistent with cellulitis or other infection. Please return with high fevers abdominal pain nausea vomiting decreased oral intake or other concerns. Clinical Impressions Clinical Impression: Swelling of right upper extremity, Severe flexion contractures of all joints, Chronic venous insufficiency Discharge ED Provider: Migel Cha General Adult HPI General Chief complaint: Extremity Problem,Nontraumatic Stated complaint: low bp, discolored L hip & RUE Time Seen by Provider: 07/17/23 09:50 History of Present Illness HPI narrative: Is a 72-year-old female who is a [place] resident chronically contracted [place] today [facility] with hypotension and right upper extremity swelling and blue discoloration. The patient states that she has no acute or different symptoms from baseline she is alert awake oriented. States that she has chronic pain in that right upper extremity has been going on at least for a year. snf claims that this discoloration is new. Patient denies any new shortness of breath chest pain she had some abdominal pain in the past recently but that has since resolved. She also had some nausea which has resolved. She has no ongoing symptoms at the moment. No history of DVT or PE that we are aware of. She is chronically bedbound. Related Data Home Medications Medication Instructions Recorded Confirmed atorvastatin 10 mg tablet 10 mg PO HS Cholesterol 02/18/23 02/18/23 carvedilol 3.125 mg tablet 3.125 mg PO BID Heart rhythm 02/18/23 02/18/23 diazepam 5 mg tablet 5 mg PO HS Anxiety 02/18/23 02/18/23 furosemide 20 mg tablet 20 mg PO DAILY Edema 02/18/23 02/18/23 hyoscyamine sulfate 0.125 mg tablet 0.125 mg PO QIDP PRN GI upset 02/18/23 02/18/23 levothyroxine 200 mcg tablet 200 mcg PO AM Thyroid 02/18/23 02/18/23 levothyroxine 50 mcg tablet 50 mcg PO AM Thyroid 02/18/23 02/18/23 oxybutynin chloride 5 mg 5 mg PO DAILY Urinary 02/18/23 02/18/23 tablet,extended release 24 hr pantoprazole 20 mg tablet,delayed 20 mg PO DAILY Acid reflux 02/18/23 02/18/23 release potassium chloride 20 mEq 20 meq PO DAILY Supplement 02/18/23 02/18/23 tablet,extended release(part/cryst) prednisone 10 mg tablet 10 mg PO BID Unknown 02/18/23 02/18/23 Previous Rx's Medication Instructions Recorded levofloxacin 500 mg tablet 500 mg PO DAILY 7 days #7 tabs 02/18/23 Allergies Allergy/AdvReac Type Severity Reaction Status Date / Time Penicillins Allergy Verified 08/06/22 18:37 Sulfa (Sulfonamide Allergy Verified 08/06/22 18:37 Antibiotics) sulfamethoxazole Allergy Verified 08/06/22 18:37 [From ] trimethoprim [From ] Allergy Verified 08/06/22 18:37 PFS PFS Discl
--- NOTE | 2023-07-17 10:11 | PC.NURSE ---
CV equipment operator/laborer at bedside
--- NOTE | 2023-07-17 10:40 | PC.NURSE ---
pt's son at bedside
[2023-07-17 11:00] VITALS: BP 99/69; PULSE 88; O2SAT 90
--- NOTE | 2023-07-17 11:25 | PC.NURSE ---
Dr. Cha at [facility] to update pt/family about POC
--- NOTE | 2023-07-17 11:38 | PC.NURSE ---
called report to Jess WHITAKER at [facility]
[2023-07-17 12:40] VITALS: BP 141/100; PULSE 88; RESP 16; TEMP 36.7
== END 2023-07-17 12:42 | disposition home or self-care (01) ==
PROVIDERS: Emergency Provider Student in an Organized Health Care Education/Training Program; PCP Family Medicine
DX: M24.50 Contracture, unspecified joint (principal); R22.41 Localized swelling, mass and lump, right lower limb; I87.2 Venous insufficiency (chronic) (peripheral); G20 Parkinson's disease; I25.2 Old myocardial infarction; E03.9 Hypothyroidism, unspecified; I10 Essential (primary) hypertension
CPT/HCPCS: 93971; 99284